=== PATIENT | female | born 1995 | race Caucasian/White ===

== ENCOUNTER 2019-04-17 12:59 | Outpatient (CLI) | payer BC, SELFPAY ==
[2019-04-17 14:19] LABS: Hematocrit 41.4 % (37.0-47.0); Hemoglobin 14.2 g/dL (12.0-15.0); Mean Corpuscular HGB Conc 34.3 g/dl (32-36); Mean Corpuscular Volume 90.4 fl (80-100); Mean Platelet Volume 10.1 fl (7.4-10.4); Platelet Count Result 292 k/mm3 (150-375); Red Blood Count 4.58 M/mm3 (4.2-5.4); Red Cell Distribution Width 11.7 % (11.5-14.5)
[2019-04-17 14:36] LABS: Alanine Aminotransferase 22 U/L (4-35); Albumin Level 4.6 g/dL (3.5-5.1); Alkaline Phosphatase 73 U/L (38-126); Aspartate Amino Transferase 23 U/L (14-36); Bilirubin,Total 0.4 mg/dL (0.2-1.3); Blood Urea Nitrogen 12 mg/dL (7-17); Calcium 9.3 mg/dL (8.4-10.2); Carbon Dioxide 24 mmol/L (22-30); Chloride 102 mmol/L (98-107); Cholesterol 187 mg/dL (0-200); Estimated Glomerular Filt Rate > 60; Glucose 85 mg/dL (65-105); HDL Direct 43 mg/dL; Potassium 3.9 mmol/L (3.4-5.0); Sodium 138 mmol/L (137-145); Triglycerides 129 mg/dL (<150)
[2019-04-17 14:47] LABS: LDL Cholesterol Direct 113 mg/dL
[2019-04-17 17:23] LABS: Hemoglobin A1C 5.3 % (<5.7)
[2019-04-20 12:58] LABS: FSH 4.1 mIU/mL (***); LH 2.5 mIU/mL (***); Progesterone 0.8 ng/mL (***); Prolactin 6.7 ng/mL (***)
[2019-04-20 16:12] LABS: Testosterone Total 20 ng/dL (2-45)
[2019-04-21 03:45] LABS: Sex Hormone Binding Globulin 23 nmol/L (17-124)
[2019-04-21 09:57] LABS: DHEA-Sulfate 168 mcg/dL (18-391)
[2019-04-26 18:32] LABS: Estradiol, Ultrasensitive 31 pg/mL
== END 2019-04-17 13:00 | disposition home or self-care (01) ==
PROVIDERS: Obstetrics & Gynecology Gynecology; Visit Provider Nurse Practitioner Obstetrics & Gynecology
DX: N92.6 Irregular menstruation, unspecified (principal)
CPT/HCPCS: 36415; 80053; 80061; 82627; 82670; 83001; 83002; 83036; 83498; 84144; 84146; 84270; 84403; 84443; 85027

== ENCOUNTER 2019-11-17 20:51 | Emergency (ER) | payer BC, SELFPAY ==
--- NOTE | ~2019-11-17 | US_ITS ---
EXAMINATION: US OB <=14 wk fetus w TV DATE: 11/18/2019 02:18 INDICATION: Low abdominal pain. TECHNIQUE: Real-time transabdominal and transvaginal pelvic ultrasound was performed. COMPARISON: None. FINDINGS: TRANSABDOMINAL ULTRASOUND: The uterus measures 9.1 x 4.8 x 6.1 cm. TRANSVAGINAL ULTRASOUND: There is an intrauterine gestational sac. A yolk sac is identified. The fet al crown rump length measures 1.3 cm, which correlates with an estimated gestational age of 7 weeks a nd 4 day(s) (+/-) 5 day(s). heart motion is identified measuring 149 beats per minute (bpm) by M-mode Doppler. There is a small subchorionic hematoma measuring 2.6 x 1.2 x 2.5 cm. The right ovary measures 3.9 x 1.9 x 2.2 cm. The left ovary measures 2.9 x 2.4 x 2.5 cm. There is no free fluid in th e pelvis. IMPRESSION: 1. Single living intrauterine gestation with estimated date of delivery of 07/02/2020. 2. Small subchorionic hematoma. Reviewed, dictated and finalized at location A. IMPRESSION: 1. Single living intrauterine gestation with estimated date of delivery of 06/06. 2. Small subchorionic hematoma.
--- NOTE | 2019-11-17 23:17 | ED.BACK ---
HPI - Back Pain/Injury General Chief Complaint: Back Pain/Injury Stated Complaint: back pain/might be Time Seen by Provider: 11/17/19 22:33 Source: patient Mode of arrival: ambulatory Limitations: no limitations History of Present Illness HPI Narrative: This patient is a 24 year old female who presents for evaluation of left lower back pain since yesterday. She states this pain is intermittent and it may radiated to left lower abdomen. She denies nausea, vomiting, fever or chills. She also denies vaginal bleeding. She has not taken anything pain as she reports she is . She has a positive test 1 month ago. Her last known menstrual cycle was 10/03/19. She reports her pain is 4/10. Related Data Home Medications Medication Instructions Recorded Confirmed hydroxyzine HCl 10 mg tablet 10 mg PO TID PRN 07/08/19 Allergies Allergy/AdvReac Type Severity Reaction Status Date / Time No Known Allergies Allergy Verified 11/17/19 20:52 Review of Systems Review of Systems: All systems reviewed & are unremarkable except as noted in HPI and below Constitutional: Constitutional: Denies chills and Denies fever(s) Gastrointestinal: Gastrointestinal: Reports abdominal pain, Denies nausea and Denies vomiting Genitourinary: Genitourinary: Denies hematuria and Reports dysuria Musculoskeletal: Musculoskeletal: Reports back pain [facility] Past Medical History Medical History (Updated 11/18/19 @ 03:13 by Herlinda Kern MD) Hirsutism PCOS (polycystic ovarian syndrome) Family History Family History Mother Asthma Father Family history of arthritis Social History Social History (Updated 10/28/19 @ 14:09 by Chinyere Stuart) Social History: Single Smoking packs per day: 0.5 Smoking cigarettes per day: 10.0 Years smoked: 12 Smoking pack-years: 6.00 Smoking status: Current every day smoker Tobacco type: cigarettes and e-cigarettes/vaping Second hand tobacco smoke exposure: Yes Alcohol intake: current Substance use: never Substance use type: does not use Gender identity (if verbalized by the patient): Female Exam Const: General: no acute distress and alert Nutritional Appearance: obese Orientation/consciousness: patient oriented x3 HENMT: Face and sinus: face symmetric Throat: posterior oropharynx normal, tonsils normal and uvula midline Eyes: Pupils: Equal, round and reactive pupils present EOM: EOMs intact bilaterally Chest: Chest palpation & inspection: normal inspection of the chest Resp: Effort & Inspection: normal respiratory effort, no retractions and no use of accessory muscles Auscultation: clear to auscultation bilaterally Cardio: Rate: regular rate Rhythm: regular rhythm GI: GI Palp: Yes Soft to palpation, No Tenderness to palpation present (GI), No Guarding due to palpation present (GI) and No Rigid due to palpation Course Reevaluation(s) Reevaluation #1: I Discussed with patient that ultrasound shows IUP with heart tones. On review of records her Blood type is O positive so no rhogam needed. Date: 11/18/19 Time: 03:07 Vital Signs Vital signs: Vital Signs Temperature 98 F 11/18/19 03:17 Pulse Rate 92 11/18/19 03:17 Respiratory Rate 16 11/18/19 03:17 Blood Pressure 127/83 11/18/19 03:17 Pulse Oximetry 98 11/18/19 03:17 Temperature 98 F 11/18/19 03:17 Pulse Rate 92 11/18/19 03:17 Respiratory Rate 16 11/18/19 03:17 Blood Pressure 127/83 11/18/19 03:17 Pulse Oximetry 98 11/18/19 03:17 MDM - Back Pain/Injury Lab Data Attestation: I reviewed the patient's lab results. Result diagrams: 11/18/19 00:12 11/18/19 00:12 Labs: Lab Results 11/17/19 11/18/19 11/18/19 Range/Units 22:56 00:12 00:12 WBC 13.3 H (4.5-10.0) K/mm3 RBC 4.24 (4.2-5.4) M/mm3 Hgb 13.7 (12.0-15.0) g/dL Hct 39.3 (37.0
[2019-11-17 23:25] LABS: Add Urine Microscopic? NO; Appearance Urine Clear (Clear); Bilirubin Urine Negative (Negative); Blood Urine Negative (Negative); Color Urine Yellow (Yellow); Glucose Urine UA Negative (Negative); Ketones Urine Negative (Negative); Leukocyte Esterase Ur Negative LEU/UL (Negative); Nitrate Urine Negative (Negative); Protein Urine Negative (Negative); Specific Grav Ur 1.012 (1.001-1.035); Urobilinogen Urine Negative mg/dL (<2.0)
[2019-11-18 00:20] LABS: Basophils Absolute Auto 0.1 K/mm3 (0.0-0.1); Basophils Percent Auto 1.1 % (0.2-1.2); Eosinophils Absolute Auto 0.6 K/mm3 (0-0.3); Eosinophils Percent Auto 4.4 % (0-4.4); Hematocrit 39.3 % (37.0-47.0); Hemoglobin 13.7 g/dL (12.0-15.0); Immature Granulocyte Absolute 0.13 K/mm3 (0.00-0.031); Lymphocytes Absolute Auto 3.65 K/mm3 (0.9-3.2); Lymphocytes Percent Auto 27.5 % (18.3-44.2); Mean Corpuscular HGB Conc 34.9 g/dl (32-36); Mean Corpuscular Hemoglobin 32.3 pg (26-34); Mean Corpuscular Volume 92.7 fl (80-100); Mean Platelet Volume 9.8 fl (7.4-10.4); Monocytes Absolute Auto 0.7 K/mm3 (0.1-0.6); Monocytes Percent Auto 5.3 % (2.6-8.5); Neutrophils Absolute Auto 8.1 K/mm3 (1.3-6.7); Neutrophils Percent Auto 60.7 % (45.5-73.1); Platelet Count Result 303 k/mm3 (150-375); Red Blood Count 4.24 M/mm3 (4.2-5.4); Red Cell Distribution Width 12.8 % (11.5-14.5); White Blood Count 13.3 K/mm3 (4.5-10.0)
[2019-11-18 00:32] LABS: Alanine Aminotransferase 27 U/L (4-35); Albumin Level 3.8 g/dL (3.5-5.1); Alkaline Phosphatase 64 U/L (38-126); Anion Gap 7 mmol/L (8-16); Aspartate Amino Transferase 20 U/L (14-36); Bilirubin,Total 0.2 mg/dL (0.2-1.3); Blood Urea Nitrogen 7 mg/dL (7-17); Calcium 9.2 mg/dL (8.4-10.2); Carbon Dioxide 24 mmol/L (22-30); Chloride 105 mmol/L (98-107); Estimated CRCL calculation 157 ml/min; Estimated Glomerular Filt Rate > 60; Glucose 96 mg/dL (65-105); Potassium 3.9 mmol/L (3.4-5.0); Sodium 136 mmol/L (137-145)
--- NOTE | 2019-11-18 01:52 | PC.NURSE ---
pt at ultrasound at this time
[2019-11-18 03:17] VITALS: BP 127/83; PULSE 92; RESP 16; TEMP 36.6; O2SAT 98
== END 2019-11-18 03:18 | disposition home or self-care (01) ==
PROVIDERS: Emergency Provider General Practice; PCP Family Medicine
DX: O46.8X1 Other antepartum hemorrhage, first trimester (principal); O99.281 Endocrine, nutritional and metabolic diseases complicating pregnancy, first trimester; E28.2 Polycystic ovarian syndrome; O99.331 Smoking (tobacco) complicating pregnancy, first trimester; F17.210 Nicotine dependence, cigarettes, uncomplicated; Z3A.01 Less than 8 weeks gestation of pregnancy
CPT/HCPCS: 36415; 76801; 76817; 80053; 81003; 81025; 84702; 85025; 99284

== ENCOUNTER 2020-06-24 13:59 | Outpatient (CLI) | payer BC, MEDICAID, SELFPAY ==
[2020-06-24 15:07] LABS: Hematocrit 32.2 % (37.0-47.0); Hemoglobin 11.2 g/dL (12.0-15.0); Mean Corpuscular HGB Conc 34.8 g/dl (32-36); Mean Corpuscular Hemoglobin 31.2 pg (26-34); Mean Corpuscular Volume 89.7 fl (80-100); Mean Platelet Volume 10.4 fl (7.4-10.4); Platelet Count Result 273 k/mm3 (150-375); Red Blood Count 3.59 M/mm3 (4.2-5.4); Red Cell Distribution Width 13.1 % (11.5-14.5); White Blood Count 14.8 K/mm3 (4.5-10.0)
[2020-06-25 08:30] LABS: Rapid Plasma Reagin Non-Reactive (NonReactive)
== END 2020-06-24 14:00 | disposition home or self-care (01) ==
PROVIDERS: PCP Family Medicine; Visit Provider Obstetrics & Gynecology
DX: Z01.812 Encounter for preprocedural laboratory examination (principal); O34.219 Maternal care for unspecified type scar from previous cesarean delivery; Z3A.39 39 weeks gestation of pregnancy
CPT/HCPCS: 36415; 85027; 86592; 86850; 86900; 86901

== ENCOUNTER 2020-06-25 05:20 | Inpatient (IN) | payer BC, MEDICAID, SELFPAY ==
[2020-06-25] VITALS (56 sets, daily range): BP systolic 78–142; BP diastolic 45–104; PULSE 69–249; RESP 15–21; TEMP 36.2–36.6; O2SAT 97–100; BMI 43.7
[2020-06-25] MEDS: LACTATED RINGERS 1,000 ML 125 ML IV CONT (06:46)
--- NOTE | 2020-06-25 07:14 | WPDANESEPPF ---
Anes - Initial Pre Proc Eval Procedure: Operation Date: 06/25/20 07:30 Proposed Procedures p Repeat Section - Cortney Thibodeaux MD Date/Time: 06/25/20 07:14 Surgeon: Cortney Thibodeaux MD Pre Op Diagnosis: C/S Patient Data Age: 25 Gender: F Height: 1.68 m Weight: 122.73 kg Last Vital Signs Pulse 91 06/25/20 06:33 BP 142/86 H 06/25/20 06:33 Allergies Allergy/AdvReac Type Severity Reaction Status Date / Time No Known Allergies Allergy Verified 11/17/19 20:52 Home Medications Medication Instructions Recorded Confirmed Type No Home Medications 06/25/20 06/25/20 History Patient hx anesthesia problems: none Family hx anesthesia problems: none PMFSH Past Medical History Medical History (Updated 11/18/19 @ 03:13 by Herlinda Kern MD) Hirsutism PCOS (polycystic ovarian syndrome) Family History Family History Mother Asthma Father Family history of arthritis Social History Social History (Updated 10/28/19 @ 14:09 by Chinyere Stuart) Social History: Single Smoking packs per day: 0.5 Smoking cigarettes per day: 10.0 Years smoked: 12 Smoking pack-years: 6.00 Smoking status: Current every day smoker Tobacco type: cigarettes and e-cigarettes/vaping Second hand tobacco smoke exposure: Yes Alcohol intake: current Substance use: current Substance use type: does not use Gender identity (if verbalized by the patient): Female Spiritual care concerns: No Anes - Eval Final PreProcedure Day of Procedure 06/25/20 07:14 Patient weight: morbidly obese Heart: regular rate and rhythm Lungs: clear to auscultation and normal air movement Airway: Mallampati scale class II Neurological: alert and oriented Last oral intake: >/= 8 hours ASA classification: III Emergent: no Anesthetic plan: proceed Anesthesia type and monitoring: regional spinal and standard monitoring Informed Consent: The patient's anesthetic plan and its attendant risks and benefits were discussed with the patient/family/POA. Questions were solicited and answers provided to the satisfaction of the patient/family/POA.
--- NOTE | 2020-06-25 07:30 | LDADM ---
This patient, Julianna Tate, was admitted to Labor/Delivery/Recovery 119 on 06/25/20 at 05:20. Plans for section pain management and were discussed with patient. Patient/family oriented to hospital policies and general routines including ID bracelet, bed and alarms, visiting hours, pain management, procedures, bathroom and other care routines, personal items, smoking policy, room service/diet and guest tray routines, infant security routines, and visiting hours. Patient/Family are encouraged to report perceived risks to care and to ask questions if they do not understand what they are told or what they should do. See OBIX for further documentation.
--- NOTE | 2020-06-25 07:33 | PM.IMHP ---
H&P: HPI History of Present Illness Date/Time: 06/25/20 07:33 Chief Complaint: repeat CS Narrative: Pt is a 25yo at 39weeks for Repeat CS. Pregnacy complicated by obesity. Review of Systems Review of Systems: All systems reviewed & are unremarkable except as noted in HPI and below PMFSH Past Medical History Medical History (Updated 11/18/19 @ 03:13 by Herlinda Kern MD) Hirsutism PCOS (polycystic ovarian syndrome) Family History Family History Mother Asthma Father Family history of arthritis Social History Social History (Updated 10/28/19 @ 14:09 by Chinyere Stuart) Social History: Single Smoking packs per day: 0.5 Smoking cigarettes per day: 10.0 Years smoked: 12 Smoking pack-years: 6.00 Smoking status: Current every day smoker Tobacco type: cigarettes and e-cigarettes/vaping Second hand tobacco smoke exposure: Yes Alcohol intake: current Substance use: current Substance use type: does not use Gender identity (if verbalized by the patient): Female Spiritual care concerns: No Meds Home Medications and Allergies Home Medications Medication Instructions Recorded Confirmed Type No Home Medications 06/25/20 06/25/20 History Allergies Allergy/AdvReac Type Severity Reaction Status Date / Time No Known Allergies Allergy Verified 11/17/19 20:52 Vital Signs Vital Signs - 24 hr 06/25/20 06:33 Pulse Rate 91 Blood Pressure 142/86 H Exam Const: General: no acute distress Resp: Effort & Inspection: normal respiratory effort Auscultation: clear to auscultation bilaterally Cardio: Rate: regular rate Rhythm: regular rhythm GI: GI Palp: Yes Soft to palpation Extrem: General: normal to inspection Assessment and Plan Additional Plan R CS Pt consented, discussed RBA, questions answered. Will proceed.
--- NOTE | 2020-06-25 07:36 | WPDHPUPDATE1 ---
History and Physical Update Update Date/Time: 06/25/20 07:36 History and Physical has been reviewed, including an updated exam of the patient. There are NO changes in the patient's condition. Risks, benefits, and alternatives have been discussed and questions answered. Patient agrees to proceed with procedure.
[2020-06-25 08:25] LABS: Amphetamine Screen Urine Negative (Negative); Barbiturate Screen Urine Negative (Negative); Benzodiazepines Screen Urine Negative (Negative); Cannabinoid Screen Urine Negative (Negative); Cocaine Screen Urine Negative (Negative); Methadone Screen Urine Negative (Negative); Opiate Screen Urine Negative (Negative); Phencyclidine Screen Urine Negative (Negative)
--- NOTE | 2020-06-25 08:41 | P.PCNOB_ITS ---
OB - Delivery Note Procedure Delivery date: 06/25/20 Procedure: Procedures Operation Date: 06/25/20 07:30 <No data on this case meets the specified criteria> section Intrapartal events: None Route of delivery: Specimen: Yes (placenta) Quantitative Blood Loss (ml): 300 Anesthesia type: Spinal Disposition: floor Complications: none Narrative: The patient was taken to the OR and received spinal anesthesia. She was placed in dorsal supine position with left lateral tilt. SCDs and pastor were placed. She was prepped and draped in the normal sterile fashion. A Pfannensteil skin incision was made and carried through to the underlying layer of fascia. The fascia was incised in the midline and then extended laterally using Tang scissors. The muscles were in the midline and the peritoneum was entered bluntly. The peritoneal incision was extended inferiorly and superiorly with care to avoid the bladder. The bladder blade was then inserted, the vesicouterine peritoneum was grasped, incised with Metzenbaum scissors, and a bladder flap created. The bladder blade was reinserted. A low transverse uterine incision was made with a scalpel and extended bluntly. AROM was performed and fluid was noted to be clear. The head was delivered, followed by the remainder of the baby. The baby's oropharynx was suctioned. After 30 seconds, the cord was clamped and cut and the infant was handed off. Cord blood was obtained and the placenta was then removed manually. The uterus was exteriorized. A moist lap sponge was used to curette the endometrium. The uterine incision was then closed with one layer of 0-Vicryl in a running, locking fashion. Good hemostasis was noted. The posterior cul de sac was irrigated with normal saline and cleared of all clot and debris. The u terus was returned to the abdomen. Both lateral gutters were then irrigated. The rectus muscles were inspected and found to be hemostatic. The fascia was reapproximated using 0-Vicryl in running fashion. The subcutaneous tissue was irrigated with normal saline and made hemostatic with Bovie electrocautery. The subcutaneous tissue was reapproximated with a layer of running 2-0 plain gut. The skin was then closed with 4-0 Vicryl in a subcuticular fashion. Steri strips and a bandage were applied. The uterus was evacuated. The patient tolerated the procedure very well. All counts were correct. She was taken to the recovery room in good condition. [place] Baby Date of : 06/25/20 Time of : 08:06 Weeks of gestation at delivery: 39 Infant gender: Male Weight (pounds): 7 Weight (ounces): 6 presentation: vertex Placenta delivery description: Manual Removal cord vessel description: 3 Vessels and Delayed Cord Clamping score one minute: 8 score five minutes: 9
[2020-06-25] MEDS: OXYTOCIN 30 UNITS/NS 500 ML 30 UNITS/500 ML BAG 125 UNITS IV CONT (09:50)
--- NOTE | 2020-06-25 11:08 | OBPPTRN ---
Patient transferred to post room # 284 via stretcher. Support person present. Oriented to unit, room, information board, rooming in, admission packet and security measures. Patient verbalizes understanding.
[2020-06-25] MEDS: DEXTROSE 5%/0.45% SOD CHL 1,000 ML 125 ML IV CONT (14:00)
[2020-06-25] MEDS: HYDROcodone/acetaminophen (*CRX) 5-325 MG TABLET 1 TAB PO (16:28)
[2020-06-25] MEDS: IBUPROFEN 600 MG TABLET PO (16:28)
[2020-06-25] MEDS: DOCUSATE SODIUM 100 MG CAPSULE PO (16:29)
[2020-06-26 00:45] VITALS: BP 117/58; PULSE 93; RESP 16; TEMP 36.2; O2SAT 100
[2020-06-26 04:40] VITALS: BP 119/66; PULSE 88; RESP 18; TEMP 36.7; O2SAT 100
[2020-06-26] MEDS: IBUPROFEN 600 MG TABLET PO ×4 (04:43→23:43)
[2020-06-26] MEDS: HYDROcodone/acetaminophen (*CRX) 5-325 MG TABLET 1 TAB PO ×3 (04:44→17:15)
[2020-06-26 05:23] LABS: Basophils Percent Auto 0.3 % (0.2-1.2); Eosinophils Absolute Auto 0.2 K/mm3 (0-0.3); Eosinophils Percent Auto 1.5 % (0-4.4); Hematocrit 27.7 % (37.0-47.0); Hemoglobin 9.7 g/dL (12.0-15.0); Immature Granulocyte Absolute 0.16 K/mm3 (0.00-0.031); Immature Granulocyte Percent A 1.2 % (0-0.5); Lymphocytes Absolute Auto 1.86 K/mm3 (0.9-3.2); Lymphocytes Percent Auto 13.4 % (18.3-44.2); Mean Corpuscular Hemoglobin 31.3 pg (26-34); Mean Corpuscular Volume 89.4 fl (80-100); Mean Platelet Volume 10.1 fl (7.4-10.4); Monocytes Absolute Auto 0.6 K/mm3 (0.1-0.6); Monocytes Percent Auto 4.6 % (2.6-8.5); Neutrophils Absolute Auto 10.9 K/mm3 (1.3-6.7); Platelet Count Result 204 k/mm3 (150-375); Red Cell Distribution Width 12.9 % (11.5-14.5); White Blood Count 13.9 K/mm3 (4.5-10.0)
--- NOTE | 2020-06-26 07:41 | WPDANLDNPN2 ---
Anes-Prog Note L&D-Neuraxial Date/Time: 06/26/20 07:41 Neuraxial medications: intrathecal PF morphine Opiod-related complaints: none Patient feedback: Patient satisfied with post-operative pain management.
--- NOTE | 2020-06-26 07:41 | WPDANLDPN2 ---
Anes-Prog Note L&D Date/Time: 06/26/20 07:41 Comfortable throughout: section Neuraxial method: spinal Epidural/Spinal procedure site: clean & non-tender Neuro status: Neuro function grossly intact. Cardiovascular status: normal Respiratory status: normal Airway patency: baseline Mental status: baseline Post-Op hydration status: normal Vital Signs: Last Vital Signs Temp 36.7 C 06/26/20 04:40 Pulse 88 06/26/20 04:40 Resp 18 06/26/20 04:40 BP 119/66 06/26/20 04:40 Pulse Ox 100 06/26/20 04:40 Pain score (VAS): 0 I/O: Intake & Output 06/25/20 06/25/20 06/26/20 15:59 23:59 07:59 Intake Total 3050 750 Output Total 045 233 1121 Balance -450 2400 -450 Post-procedural complaints: none Patient feedback: Patient satisfied with anesthetic care.
--- NOTE | 2020-06-26 08:17 | P.PNOB_ITS ---
OB - PN: Subj Subjective Date/time seen: 06/26/20 08:17 Patient comments: no complaints baby status: doing well Narrative: POD 1 from primary CS. Doing well. Normal lochia. Eating, ambulating, pastor out. OB - PN: Obj Data Labs CBC & Chem 7: 06/26/20 05:14 Labs: Laboratory Results - last 24 hr 06/25/20 06/26/20 07:44 05:14 WBC 13.9 H RBC 3.10 L Hgb 9.7 L Hct 27.7 L MCV 89.4 MCH 31.3 MCHC 35.0 RDW 12.9 Plt Count 204 MPV 10.1 Immature Gran % (Auto) 1.2 H Neut % (Auto) 79.0 H Lymph % (Auto) 13.4 L [place] % (Auto) 4.6 Eos % (Auto) 1.5 Baso % (Auto) 0.3 Lymph # (Auto) 1.86 [place] # (Auto) 0.6 Eos # (Auto) 0.2 Baso # (Auto) 0.0 Abs Immat Gran (auto) 0.16 H Absolute Neuts (auto) 10.9 H Absolute Nucleated RBC 0.0 Nucleated RBC % 0.0 Urine Opiates Screen Negative Urine Methadone Screen Negative Ur Barbiturates Screen Negative Ur Phencyclidine Scrn Negative Ur Amphetamine Screen Negative U Benzodiazepines Scrn Negative Urine Cocaine Screen Negative U Cannabinoids Screen Negative OB - PN A/P Plan day: 1 Plan: routine care Time Spent With Patient Time: Total time spent is greater than 50% in coordination of care (as documented) at patient's floor/unit and/or counseling patient: Exam Narrative: Exam Narrative: NAD abdomen soft, appropriately tender, incision bandaged Extremities nontender with 1+ edema
[2020-06-26] MEDS: SIMETHICONE 80 MG TAB.CHEW PO ×2 (11:18→17:14)
[2020-06-26] MEDS: DOCUSATE SODIUM 100 MG CAPSULE PO ×2 (11:19→17:16)
[2020-06-26] MEDS: POLYSACCHARIDE IRON COMPLEX 150 MG CAPSULE PO ×2 (11:19→17:16)
[2020-06-26] MEDS: MULTIVIT/MIN/PREN/FOL AC/IRON TABLET 1 TAB PO (11:19)
[2020-06-26 11:20] VITALS: BP 124/66; PULSE 104; PULSE 88; RESP 18; RESP 20; TEMP 36.4; O2SAT 100; O2SAT 99
[2020-06-26 19:15] VITALS: BP 119/70; PULSE 99; RESP 18; TEMP 36.7; O2SAT 100
[2020-06-26] MEDS: TETANUS,DIPHTHERIA,AC PERTUSSIS ADULT (0.5 ML) BOOSTRIX IM (19:16)
--- NOTE | 2020-06-26 19:31 | PC.NURSE ---
Patient viewed the discharge video Mother & Baby Care, The First Two Weeks online. Patient was given the opportunity and encouraged to ask questions. Patient verbalized understanding of information shared and has been given the mother/baby guide for home reference.
[2020-06-26] MEDS: HYDROcodone/acetaminophen (*CRX) 10-325 MG TABLET 1 TAB PO ×2 (21:06→23:43)
[2020-06-27] MEDS: HYDROcodone/acetaminophen (*CRX) 10-325 MG TABLET 1 TAB PO (05:42)
[2020-06-27] MEDS: IBUPROFEN 600 MG TABLET PO (05:43)
[2020-06-27 08:00] VITALS: PULSE 99; RESP 18; O2SAT 100
--- NOTE | 2020-06-27 09:54 | PM.OBPNVD ---
OB - PN: Subj Subjective Date/time seen: 06/27/20 09:54 Interval history: Doing well. Would like DC home today but uncle called and stated she is homeless. She can go with her grandma for a couple days but not residential. Patient comments: pain well controlled [place] baby status: doing well feeding status: exclusively bottle feeding OB - PN: Obj Data Labs CBC & Chem 7: 06/26/20 05:14 OB - PN A/P Plan day: 2 Plan: routine care Comments: SW consult. Possible DC home if safe plan for where to stay. DC instructions given. Time Spent With Patient Time: Total time spent is greater than 50% in coordination of care (as documented) at patient's floor/unit and/or counseling patient: Exam Narrative: Exam Narrative: NAD abdomen soft, appropriately tender, incision CDI Extremities nontender with 1+ edema
--- NOTE | 2020-06-27 10:02 | PM.DS ---
DS: Admitting Diagnosis Admitting Diagnosis Admitting Diagnosis: term IUP, prior CS DS: Discharge Diagnosis Discharge Diagnosis (1) delivery delivered: Code(s): O82 - Encounter for delivery without indication Status: Acute DS: Summary Hospital Course Hospital Course: Pt had a repeat CS and course was uncomplicated. Status at Discharge Functional status at discharge: independent ambulation Time Spent with Patient Time attestation: Total time spent providing and/or coordinating discharge services: Exam Narrative: Exam Narrative: NAD abdomen soft, appropriately tender, incision CDI Discharge Plan Discharge Attending physician on discharge: Cortney Thibodeaux Discharging Clinician: Cortney Thibodeaux Anticipated Discharge Date/Time: 06/27/20 17:00 Patient Disposition: Home, Self-Care Activity: may shower, may drive after 2 weeks and pelvic rest Diet: as tolerated Patient Instructions: Antibiotic Form Stand Alone Forms: General Discharge Information Follow-up/Referrals: Cortney Thibodeaux MD [Physician] - (1 week) Discharge Medications: New hydrocodone-acetaminophen 5-325 mg Tablet 1 tablet PO Q4-6H PRN (Reason: Moderate Pain (4-6)) Qty: 30 RF: 0 ibuprofen 600 mg Tablet 600 mg PO Q6H PRN (Reason: Cramping) Qty: 60 RF: 1 docusate sodium 100 mg Capsule 100 mg PO BID PRN (Reason: constipation) Qty: 60 RF: 1 No Action No Home Medications RF: 0 Date of admission: 06/25/20 05:20 Primary Care Provider: Mita Washington Admitting Provider: Cortney Thibodeaux Attending physician on admission: Cortney Thibodeaux Condition: Stable
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
[2020-06-30 11:20] VITALS: BP 135/93; PULSE 90; RESP 20; TEMP 37.1; O2SAT 99
== END 2020-06-27 13:25 | disposition home or self-care (01) | DRG 788 ==
LOC: ANHLDR 05:33 → ANHOB2 11:15
PROVIDERS: Admitting Provider Obstetrics & Gynecology; PCP Family Medicine; Visit Provider Obstetrics & Gynecology
PROC: 10D00Z1 Extraction of Products of Conception, Low, Open Approach (ICD-10-PCS; CPT 59514; principal; 2020-06-25 07:30)
DX: O34.211 Maternal care for low transverse scar from previous cesarean delivery (principal); Z37.0 Single live birth; Z3A.39 39 weeks gestation of pregnancy; O99.284 Endocrine, nutritional and metabolic diseases complicating childbirth; E28.2 Polycystic ovarian syndrome; O99.72 Diseases of the skin and subcutaneous tissue complicating childbirth; L68.0 Hirsutism; O99.214 Obesity complicating childbirth; E66.01 Morbid (severe) obesity due to excess calories; O99.344 Other mental disorders complicating childbirth; F41.1 Generalized anxiety disorder; O99.334 Smoking (tobacco) complicating childbirth; F17.210 Nicotine dependence, cigarettes, uncomplicated
CPT/HCPCS: 36415; 80307; 85025; 90715; A9270; J0131; J2274; J2370; J2590; J7120

== ENCOUNTER 2020-06-30 12:18 | Outpatient (CLI) | payer BC, MEDICAID, SELFPAY ==
[2020-06-30 12:44] VITALS: BP 136/73; PULSE 87
[2020-06-30 12:46] VITALS: BP 139/74; PULSE 77
[2020-06-30 12:49] LABS: Basophils Absolute Auto 0.1 K/mm3 (0.0-0.1); Basophils Percent Auto 0.6 % (0.2-1.2); Eosinophils Absolute Auto 0.3 K/mm3 (0-0.3); Eosinophils Percent Auto 2.9 % (0-4.4); Hematocrit 31.2 % (37.0-47.0); Hemoglobin 10.5 g/dL (12.0-15.0); Immature Granulocyte Percent A 2.6 % (0-0.5); Lymphocytes Absolute Auto 2.19 K/mm3 (0.9-3.2); Lymphocytes Percent Auto 18.9 % (18.3-44.2); Mean Corpuscular HGB Conc 33.7 g/dl (32-36); Mean Corpuscular Hemoglobin 31.4 pg (26-34); Mean Corpuscular Volume 93.4 fl (80-100); Mean Platelet Volume 9.5 fl (7.4-10.4); Monocytes Absolute Auto 0.6 K/mm3 (0.1-0.6); Neutrophils Absolute Auto 8.1 K/mm3 (1.3-6.7); Platelet Count Result 284 k/mm3 (150-375); Red Blood Count 3.34 M/mm3 (4.2-5.4); White Blood Count 11.6 K/mm3 (4.5-10.0)
[2020-06-30 12:59] LABS: Alanine Aminotransferase 14 U/L (4-35); Albumin Level 3.2 g/dL (3.5-5.1); Alkaline Phosphatase 116 U/L (38-126); Anion Gap 4 mmol/L (8-16); Aspartate Amino Transferase 20 U/L (14-36); Bilirubin,Total 0.3 mg/dL (0.2-1.3); Blood Urea Nitrogen 9 mg/dL (7-17); Calcium 8.8 mg/dL (8.4-10.2); Carbon Dioxide 29 mmol/L (22-30); Chloride 106 mmol/L (98-107); Estimated Glomerular Filt Rate > 60; Glucose 77 mg/dL (65-105); Potassium 3.3 mmol/L (3.4-5.0); Sodium 139 mmol/L (137-145)
[2020-06-30 13:01] VITALS: BP 143/79; PULSE 77
[2020-06-30 13:15] LABS: Uric Acid 4.9 mg/dL (2.5-7.5)
--- NOTE | 2020-06-30 13:15 | PC.NURSE ---
allyson WANGM reported BP and PIH lab result. discharge order received
[2020-06-30 13:17] VITALS: BP 153/83; PULSE 78
== END 2020-06-30 13:20 | disposition home or self-care (01) ==
LOC: ANHOBOP 12:26 → ANHOBPP 12:26
PROVIDERS: PCP Family Medicine; Visit Provider Advanced Practice Midwife
DX: O13.5 Gestational [pregnancy-induced] hypertension without significant proteinuria, complicating the puerperium (principal)
CPT/HCPCS: 36415; 80053; 84550; 85025; 99199

== ENCOUNTER 2020-07-02 14:44 | Outpatient (CLI) | payer BC, MEDICAID, SELFPAY ==
[2020-07-02 15:11] VITALS: BP 151/90; PULSE 92
[2020-07-02 15:32] VITALS: BP 158/94; PULSE 100
[2020-07-02 15:32] LABS: Basophils Absolute Auto 0.1 K/mm3 (0.0-0.1); Basophils Percent Auto 0.9 % (0.2-1.2); Eosinophils Absolute Auto 0.4 K/mm3 (0-0.3); Eosinophils Percent Auto 3.3 % (0-4.4); Hemoglobin 10.8 g/dL (12.0-15.0); Immature Granulocyte Absolute 0.24 K/mm3 (0.00-0.031); Immature Granulocyte Percent A 2.3 % (0-0.5); Lymphocytes Absolute Auto 2.84 K/mm3 (0.9-3.2); Lymphocytes Percent Auto 26.8 % (18.3-44.2); Mean Corpuscular HGB Conc 33.8 g/dl (32-36); Mean Corpuscular Hemoglobin 31.5 pg (26-34); Mean Corpuscular Volume 93.3 fl (80-100); Mean Platelet Volume 9.1 fl (7.4-10.4); Monocytes Absolute Auto 0.6 K/mm3 (0.1-0.6); Monocytes Percent Auto 5.7 % (2.6-8.5); Neutrophils Absolute Auto 6.5 K/mm3 (1.3-6.7); Platelet Count Result 317 k/mm3 (150-375); Red Blood Count 3.43 M/mm3 (4.2-5.4); Red Cell Distribution Width 12.7 % (11.5-14.5); White Blood Count 10.6 K/mm3 (4.5-10.0)
[2020-07-02 15:43] LABS: Alanine Aminotransferase 12 U/L (4-35); Albumin Level 3.3 g/dL (3.5-5.1); Alkaline Phosphatase 93 U/L (38-126); Anion Gap 5 mmol/L (8-16); Aspartate Amino Transferase 20 U/L (14-36); Bilirubin,Total 0.2 mg/dL (0.2-1.3); Blood Urea Nitrogen 10 mg/dL (7-17); Calcium 8.9 mg/dL (8.4-10.2); Carbon Dioxide 28 mmol/L (22-30); Chloride 107 mmol/L (98-107); Estimated Glomerular Filt Rate > 60; Glucose 80 mg/dL (65-105); Potassium 3.2 mmol/L (3.4-5.0); Sodium 140 mmol/L (137-145); Uric Acid 5.2 mg/dL (2.5-7.5)
[2020-07-02 15:46] VITALS: BP 147/83; PULSE 71
[2020-07-02 16:01] VITALS: BP 143/93; PULSE 78
== END 2020-07-02 16:15 | disposition home or self-care (01) ==
LOC: ANHOBOP 14:57 → ANHOBPP 14:57
PROVIDERS: PCP Family Medicine; Visit Provider Obstetrics & Gynecology
DX: Z01.812 Encounter for preprocedural laboratory examination (principal); O34.218 Maternal care for other type scar from previous cesarean delivery; Z3A.39 39 weeks gestation of pregnancy
CPT/HCPCS: 36415; 80053; 84550; 85025; 99199

== ENCOUNTER 2024-09-27 08:50 | Emergency (ER) | payer MEDICAID, SELFPAY ==
--- OUTSIDE RECORDS SUMMARY | 2018-03-25 12:50 | XMS_ITS | Continuity of Care Document ---
Author Organization [facility] Address [address] [place] [address] Phone Care Team Providers Care Meteorological Technician Name Role Phone Ken MS, OTR/L, CHT, Laury Unavailable Unavailable Procedures Procedure Date OT Evaluation Low Complexity Therapeutic Exercise Neuromuscular Re-Ed Advance Directives Directive Yes / No Effective Date File Name No Information Encounters Encounter Description Practice Location Reason(s) For Visit Diagnoses Date Provider Providers Copied on Encounter [facility], [address], [id number], tel:[phone] [place] No Information 9 Ken Schaeffer. [address] [facility], [address], [facility], [place]. tel:[phone] [facility], [address], [id number], tel:[phone] [place] Paresthesia of skinPain in right handOth symptoms and signs involving the musculoskeletal systemMuscle weakness (generalized)Ot her general symptoms and signsCarpal tunnel syndrome, bilateral upper limbsLesion of ulnar nerve, bilateral upper limbs b201 9 Ken Scheaffer. [address] [facility], [address], [place], [place], [facility], . tel:[phone] Referring Provider: Chinyere Kramer, [address] [place] [address] [place], [address]. tel:[phone] Family History Family Member Type Diagnosis Age At Onset No Information Payers Payer name Insurance type Covered democrat ID Authoriza elio(s) [facility] [id number] Social History Type Description Quantity Date Captured [...]
--- OUTSIDE RECORDS SUMMARY | 2018-03-25 12:50 | XMS_ITS | Continuity of Care Document ---
Author Organization [facility] [place] Address [address] [place] [address] Phone Care Team Providers Care Double End Chucking Machine Operator Name Role Phone Ken MS, OTR/L, CHT, Laury Unavailable Unavailable Procedures Procedure Date OT Evaluation Low Complexity Therapeutic Exercise Neuromuscular Re-Ed Advance Directives Directive Yes / No Effective Date File Name No Information Encounters Encounter Description Practice Location Reason(s) For Visit Diagnoses Date Provider Providers Copied on Encounter [facility] [place], [address], [id number], tel:[phone] [place] No Information 9 Ken Schaeffer. [address] [facility], [address], [facility], [place]. tel:[phone] [facility] [place], [address], [id number], tel:[phone] [place] Paresthesia of skinPain in right handOth symptoms and signs involving the musculoskeletal systemMuscle weakness (generalized)Ot her general symptoms and signsCarpal tunnel syndrome, bilateral upper limbsLesion of ulnar nerve, bilateral upper limbs b201 9 Ken Schaeffer. [address] [facility], [address], [place], [place], [facility], . tel:[phone] Referring Provider: Chinyere Kramer, [address] [place] [address] [place], [address]. tel:[phone] Family History Family Member Type Diagnosis Age At Onset No Information Payers Payer name Insurance type Covered constitution party ID Authoriza elio(s) [facility] [id number] Social History Type Description Quantity Date Captured [...]
--- OUTSIDE RECORDS SUMMARY | 2023-09-10 05:00 | XMS_ITS ---
[facility] Organization [facility] Address [address] [place] [address] Care Team Providers Care Conveyor Belt Repairer Name Role Phone Blanca Renae Primary Care Provider Brennon Cole [phone] REASON FOR VISIT 3 Week F/U Medications Medication SIG (Take, Route, Frequency, Duration) Notes Start Date End Date Status Caplyta 42 MG 1 capsule Orally Once a day; Duration: 30 days Client to update insurance. Has secondary [facility] now. Should be able to get coverage with PA and coupon, however can we use samples please until we get this straightened out? 08/22/2023 Active Lurasidone HCl 20 MG 1 tablet in the evening with food Orally Once a day; Duration: 7 days 07/09/2023 Active Social History Sex Assigned At : Social History Observation Description Sex Assigned At Female Encounters Encounter Location Date Provider Diagnosis [address] [address] 09/10/2023 Brennon Cole Plan Of Treatment No Information Progress Notes * Julianna LOUIEDOB:1995 (29 yo F)Acc No.[id number]:09/10/2023 UNLOCKED PROGRESS NOTE Patient: Julianna CAICEDO Provider: Luis Cole DNP, PMHNP- :1995 A ge:28 Y S ex:Female Date:09/10/2023 Phone: Address:[address] [place] [id number] Pcp:Blanca Renae Subjective: * Chief Complaints: * 1 . 3 Week F/U. * Medical History: * Medications: T aking Lurasidone HCl 20 MG Tablet 1 tablet in the evening with food Orally Once a day , Taking Caplyta 42 MG Capsule 1 capsule Orally Once a day , Notes to Pharmacist: Client to update insurance. Has secondary [facility] now. Should be able to get coverage with PA and coucb, however can we use samples please until we get this straightened out? Objective: * Vitals: Assessment: Plan: * Treatment: * * Electronic signature of Maxi Cole APRN, [id number] on 09/27/2024 at 08:53 AM CDT Sign off status: Pending * Provider: Luis Cole DNP, PMHNP-BC Date: 09/10/2023 Generated for Lucius sultana/Brooks/Nimco on: 09/27/2024 08:53 AM CDT
--- OUTSIDE RECORDS SUMMARY | 2023-10-15 11:00 | XMS_ITS ---
Author Organization [facility] Address [address] [place] [address] Care Team Providers Care Junior Systems Analyst Name Role Phone Blanca Renae Primary Care Provider Brennon Cole Unavailable [phone] REASON FOR VISIT 1 Month Psych F/U & Med Refill Medications Medication SIG (Take, Route, Fr equency, Duration) Notes Start Date End Date Status Lurasidone HCl 20 MG 1 tablet in the shahab shi with food Orally Once a day; Duration: 7 days 07/09/2023 Active Caplyta 42 MG 1 capsule Orally Onc e a day; Duration: 13 days 08/22/2023 Active Social History Sex Assigned At : Social History Observation Description Sex Assigned At Female Encounters Encounter Location Date Provider Diagnosis [address] [address] 10/15/2023 Brennon Cole Plan Of Treatment No Information Progress Notes * Julianna LOUIEDOB:1995 (29 yo F)Acc No.[id number]:10/15/2023 UNLOCKED PROGRESS NOTE Patient: Julianna CAICEDO Provider: Luis Cole DNP, PMHNP-BC :1995 A ge:28 Y S ex:Female Date:10/15/2023 Phone: Address:[address] [place] [id number] Pcp:Blanca Renae Subjective: * Chief Complaints: * 1 . 1 Month Psych F/U & Med Refill. * Medical History: * Medications: T aking Lurasidone HCl 20 MG Tablet 1 tablet in the evening with food Orally Once a day , Taking Caplyta 42 MG Capsule 1 capsule Orally Once a day Objective: * Vitals: Assessment: Plan: * Treatment: * * Electronic signature of Maxi Cole APRN, [id number] on 09/27/2024 at 08:53 AM CDT Sign off status: Pending * Provider: Luis Cole DNP, PMHNP-BC Date: 0 10/15/2023 Generated for Lucius sultana/Brooks/Nimco on: 0 09/27/2024 08:53 AM CDT
--- NOTE | ~2024-09-27 | US_ITS ---
EXAMINATION:US venous doppler LE LT INDICATION:Calf pain and swelling TECHNIQUE: Multiple grayscale, color flow and Doppler images of the left lower extremity deep venous systems were obtained and reviewed. COMPARISON:No prior studies for comparison. FINDINGS: The common femoral, superficial femoral and popliteal veins demonstrate normal respiratory variation, augmentation and compressibility. Color flow is also seen within the posterior tibial, peroneal, greater saphenous and profunda veins. IMPRESSION: 1: No lower extremity deep venous thrombosis. Reviewed, dictated and finalized at location O.
--- NOTE | ~2024-09-27 | XR_ITS ---
XR ankle LT min 3V 09/27/2024 09:30 INDICATION: Left ankle pain and swelling PROCEDURE: 4 views left ankle COMPARISON: No prior studies for comparison. FINDINGS: Fracture, dislocation or subluxation is not identified. Mild lateral soft tissue swelling. No foreign bodies are identified. IMPRESSION: 1: NO ACUTE BONE OR JOINT ABNORMALITY IDENTIFIED. Reviewed, dictated and finalized at location O.
--- OUTSIDE RECORDS SUMMARY | 2024-09-27 08:53 | XMS_ITS | Clinical Summary ---
Author Organization [facility] Address [address] [place], [place] [id number] Care Team Providers Care Color Worker Name Role Phone None, Provider MD Primary Care Provider Unavaila ble Allergies No known active allergies Medications CAPLYTA 42 MG Cap Take 1 capsule by mouth daily. 08/22/2023 Active multivitamin (THERA) tablet Take 1 tablet by mouth nightly at bedtime. Active Encounters Date Type Department Care Team Description 08/04/2024 6:13 AM CDT - 08/04/2024 11:59 PM CDT Hospital Encounter [facility] [address] [facility] [place] [address] Nany Obrien, DO Discharge Disposition: Home or Self Care (Routine Discharge) 08/04/2024 Orders Only [facility] [address] [facility] [place] [address] Nany Obrien, 08/02/2024 2:42 PM CDT - 08/02/2024 11:59 PM CDT Hospital Encounter [facility] [address] [facility] [place] [address] Nany Obrien, DO Discharge Disposition: Home or Self Care (Routine Discharge) from Last 3 Months Social History Tobacco Use Types Packs/Day Years Used Date Smoking Tobacco: Never Smokeless Tobacco: Never Tobacco Cessation:Counseling Given: Not Answered Alcohol Use Standard Drinks/Week Comments Not Currently 0 (1 standard drink = 0.6 oz pur e alcohol) Comments No Sex and Gender Information Value Date Recorded Sex Assigned at Not on file Legal Sex Female 6:07 PM CDT Gender Identity Not on file Sexual Orientation Not on file Last Filed Vital Signs Vital Sign Reading Time Taken Comments Blood Pressure 117/76 10/26/2023 5:40 PM CDT Pulse 75 10/26/2023 5:40 PM CDT Temperature 36.7 C (98 F) 10/26/2023 11:37 AM CDT Respiratory Rate 18 10/26/2023 5:40 PM CDT Oxygen Saturation 97% 10/26/2023 5:40 PM CDT Inhaled Oxygen Concentration - - Weight 114.5 kg (252 lb 6.8 oz) 024 11:37 AM CDT Height 167.6 cm (5' 6) 10/26/2023 11:3 7 AM CDT Body Mass Index 40.74 10/26/2023 11:37 AM CDT Plan of Treatment Health Maintenance Due Date Last Done Comments Annual Physical 1997 Hepatitis C 2012 Hepatitis B Vaccines (1 of 3 - 19+ 3-dose series) 2013 HPV Vaccines (1 - 3-dose SCD M series) 2021 Cervical Cancer Screening Pa p Smear (Age 30 to 64) Every 3 Years 08/13/2023 08/12/2020 COVID-19 Vaccine (3 - 2023-2 5 season) 2023 12/16/2021, 01/26/2021 Cervical Cancer Screening Pa p with HPV Testing (Age 30 to 64) Every 5 Years 2024 08/12/2020 Cervical Cancer Screening wi th HPV 2024 DTaP, Tdap and Td Vaccines ( 2 - Td or Tdap) 06/26/2030 06/26/2020 Meningococcal B Vaccine Aged Out No l onger eligible based on patient's age to complete this topic Meningococcal Vaccine Aged Out No kev leonora eligible based on patient's age to complete this topic Pneumococcal Vaccine: Pediatrics (0 to 5 Years) and At-Risk Patients (6 to 49 Years) Aged Out No longer eligible b ased on patient's age to complete this topic RSV Immunizations Under 20 Months Aged Out No longer eligible b ased on patient's age to complete this topic Procedures Procedure Name Priority Date/Time Associated Diagnosis Comments CBC W/DIFF AUTOMATED Routine 08/02/2024 2:45 PM CDT Examination for, medical, general COMPREHENSIVE METABOLIC PANEL Routine 08/02/2024 2:45 PM CDT Examination for, medical, general TSH W/REFLEX Routine 08/02/2024 2:45 PM CDT Examination for, medical, general HEMOGLOBIN, GLYCOSYLATED Routine 08/02/2024 2:45 PM CDT Examination for, medical, general VITAMIN B-12 Routine 08/02/2024 2:45 PM CDT Examination for, medical, general VITAMIN D, 25 OH Routine 08/02/2024 2:45 PM CDT Examination for, medical, general LIPID PANEL Routine 08/02/2024 2:45 PM CDT Examination for, medical, general HC URNLS DIP STICK/TABLET RGNT AUTO W/O MICRO Routine 08/02/2024 2:45 PM CDT Examination for, medical, general from Last 3 Months Results * TSH W/REFLEX (08/02/2024 2:45 PM CDT) TSH 1.350 0.358 - 3.74 uIU/ML 08/04/2024 12:[address] [facility] Comment: HIGH DOSES OF BIOTIN MAY INTERFERE WITH THIS TEST RESULT. CORRELATION TO CLINICAL HISTORY AND PRESENTATION RECOMMENDED. FREE T4 NOT INDICATED 08/02/2024 2:45 PM CDT us Nany Obrien DO LABORATORY Final Resu lt [facility] [address] [place] [address], [place] [phone] * HEMOGLOBIN, GLYCOSYLATED (08/02/2024 2:45 PM CDT) HGB A1C 5.4 <5.7 % 08/04/2024 11:[address] [facility] Comment: ADA GUIDELINES 2010 5.7 TO 6.4% INCREASED RISK OF DIABETES > OR = 6.5% CONSISTENT WITH DIABETES ESTIMATED AVG GLUCOSE 108 mg/dL 08/04/2024 11:[address] [facility] 08/02/2024 2:45 PM CDT us Nany Obrien DO LABORATORY Final Resu lt [facility] [address] [place] [address], [place] [phone] * (ABNORMAL) URINALYSIS W/ REFLEX TO MICROSCOPIC (08/02/2024 2:45 PM CDT) SPECIMEN TYPE URINE, UNSPECIFIED 08/04/2024 10:[address] [facility] COLOR (U) YELLOW 08/04/2024 10:[address] [facility] TRANSPARENCY TURBID 08/04/2024 10:[address] [facility] SPECIFIC GRAVITY (U) 1.022 1.001 - 1.030 08/04/2024 10:[address] [facility] U PH 7.0 5.0 - 9.0 08/04/2024 10:[address] [facility] LEUKOCYTES (U) 500(A) NEGATIVE 08/04/2024 10:[address] [facility] NITRITES NEGATIVE NEGATIVE 08/04/2024 10:[address] [facility] PROTEIN RANDOM (U) 20 <30 MG/DL 08/04/2024 10:[address] [facility] GLUCOSE (U) NORMAL NORMAL MG/DL 08/04/2024 10:[address] [facility] KETONES MG/DL (U) NEGATIVE NEGATIVE MG/DL 08/04/2024 10:[address] [facility] UROBILINOGEN NORMAL NORMAL MG/DL 08/04/2024 10:[address] [facility] BILIRUBIN (U) NEGATIVE NEGATIVE MG/DL 08/04/2024 10:[address] [facility] BLOOD (U) TRACE(A) NEGATIVE 08/04/2024 10:[address] [facility] MUCUS MANY /LPF 08/04/2024 10:[address] [facility] WBC/HPF 88(H) <6 /HPF 08/04/2024 10:[address] [facility] RBC/HPF 8(H) <6 /HPF 08/04/2024 10:[address] [facility] BACTERIA (U) RARE(A) NONE /HPF 08/04/2024 10:[address] [facility] SQUAMOUS EPITHELIALS RARE /HPF 08/04/2024 10:[address] [facility] URINE SPECIMEN OBTAINED BY CLEAN CATCH PROCEDURE / Unknown 08/02/2024 2:45 PM CDT us Nany Obrien DO URINE ORDERABLES Final Res ult [facility] [address] [place] [address], * (ABNORMAL) VITAMIN B-12 (08/02/2024 2:45 PM CDT) VITAMIN B12 S/P/B 230(L) 254 - 1,320 PG/ML 08/04/2024 12:[address] [facility] 08/02/2024 2:45 PM CDT us Nany Bowman Micah DO LABORATORY Final Resu lt [facility] [address] [place] [address], [place] [phone] * COMPREHENSIVE METABOLIC PANEL (08/02/2024 2:45 PM CDT) [facility] GLUCOSE 95 70 - 99 MG/DL 08/04/2024 6:44 AM CDT [facility] BUN 10 7 - 18 MG/DL 08/04/2024 6:44 AM CDT [facility] CREATININE S/P/B 0.62 0.50 - 1.20 MG/DL 08/04/2024 6:44 AM CDT [facility] SODIUM S/P/B 140 136 - 145 MMOL/L 08/04/2024 6:44 AM CDT [facility] POTASSIUM S/P/B 3.9 3.5 - 5.1 MMOL/L 08/04/2024 6:44 AM CDT [facility] CHLORIDE S/P/B 105 100 - 108 MMOL/L 08/04/2024 6:44 AM CDT [facility] CO2 27.7 21.0 - 32.0 MMOL/L 08/04/2024 6:44 AM CDT [facility] CALCIUM S/P/B 8.9 8.5 - 10.1 MG/DL 08/04/2024 6:44 AM CDT [facility] BILIRUBIN TOTAL S/P/B 0.2 0.2 - 1.2 MG/DL 08/04/2024 6:44 AM CDT [facility] Comment: THIS ASSAY IS NOT RECOMMENDED FOR PATIENTS UNDERGOING TREATMENT WITH ELTROMBOPAG DUE TO THE POTENTIAL FOR FALSELY ELEVATED RESULTS. TOTAL PROTEIN S/P/B 7.2 6.4 - 8.2 G/DL 08/04/2024 6:44 AM CDT [facility] ALBUMIN S/P/B 3.8 3.4 - 5.0 G/DL 08/04/2024 6:44 AM CDT [facility] AST 21 15 - 37 U/L 08/04/2024 6:44 AM CDT [facility] ALT 38 14 - 55 U/L 08/04/2024 6:44 AM CDT [facility] ALKALINE PHOSPHATASE S/P/B 91 50 - 136 U/L 08/04/2024 6:44 AM CDT [facility] ANION GAP 7.3 5.0 - 15.0 MMOL/L 08/04/2024 6:44 AM CDT [facility] BUN CREATININE RATIO 16.1 6 - 26 08/04/2024 6:44 AM T [facility] A/G RATIO 1.1 1.0 - 2.5 RATIO 08/04/2024 6:44 AM CDT [facility] GFR ESTIMATE >90 >90 ML/MIN/1.7 3 M2 08/04/2024 6:44 AM T [facility] Comment: NOTE: eGFR is not calculated for patients <18 years of age. This is an estimated GFR calculation using the new CKD EPI creatinine equation without race and so does not require a correction factor for race. This estimated GFR should not be used for calculating drug doses. 08/02/2024 2:45 PM CDT us Nany Obrien DO LABORATORY Final Resu lt [facility] [address] [facility] [place] [address], [place] * (ABNORMAL) LIPID PANEL (08/02/2024 2:45 PM CDT) CHOLESTEROL 190 <200 MG/DL 08/04/2024 12:[address] [facility] TRIGLYCERIDES 155(H) <150 MG/DL 08/04/2024 12:[address] [facility] HDL 40(L) >40.0 MG/DL 08/04/2024 12:[address] [facility] LDL (CALCULATED) 119(H) <100 MG/DL 08/04/2024 12:[address] [facility] Comment:CALCULATED USING THE FRIEDEWALD EQUATION NON HDL CHOLESTEROL 150(H) <130 MG/DL 08/04/2024 12:[address] [facility] CHOL/HDL RATIO 4.8(H) 0.0 - 4.5 08/04/2024 12:[address] [facility] VLDL CALCULATION 31 5 - 55 MG/DL 08/04/2024 12:[address] [facility] LIPID INTERPRETATION 08/04/2024 12:[address] [facility] Comment: NIH CONCENSUS REPORT RECOMMENDATIONS: ADULT CHILD LOW RISK: CHOLESTEROL <200 <170 TRIGLYCERIDE <150 --- HDL >=60 --- LDL <100 <110 BORDERLINE: CHOLESTEROL 200-239 170-199 TRIGLYCERIDE 150-199 --- HDL 40-59 --- LDL 100-159 110-129 HIGH RISK: CHOLESTEROL >=240 >=200 TRIGLYCERIDE >=200 --- HDL <40 --- LDL >=160 >=130 08/02/2024 2:45 PM CDT us Nany Obrien DO LABORATORY Final Resu lt [facility] [address] [place] [address], [place] [phone] * (ABNORMAL) CBC W/DIFF AUTOMATED (08/02/2024 2:45 PM CDT) WBC 9.06 4.50 - 11.00 x10'3/uL 08/04/2024 7:06 AM CDT [facility] RBC 4.69 4.00 - 5.20 x10'6/uL 08/04/2024 7:06 AM CDT [facility] HGB 14.7 12.0 - 16.0 G/DL 08/04/2024 7:06 AM CDT [facility] HCT 42.5 38.0 - 48.0 % 08/04/2024 7:06 AM CDT [facility] MCV 90.6 80.0 - 100.0 FL 08/04/2024 7:06 AM CDT [facility] MCH 31.3 26.0 - 34.0 PG 08/04/2024 7:06 AM CDT [facility] MCHC 34.6 31.0 - 37.0 G/DL 08/04/2024 7:06 AM CDT [facility] RDW 11.9 11.6 - 14.8 % 08/04/2024 7:06 AM CDT [facility] PLT 310 130 - 400 x10'3/uL 08/04/2024 7:06 AM CDT [facility] MPV 10.1 7.0 - 12.0 FL 08/04/2024 7:06 AM CDT [facility] CBC COMMENT AUTOMATED RBC MORPHOLOGY AND PLATELET EVALUATION NORMAL 08/04/2024 7:06 AM CDT [facility] NEUTROPHILS % 60.0 40.0 - 74.0 % 08/04/2024 7:06 AM CDT [facility] LYMPHOCYTES % 27.9 14.0 - 46.0 % 08/04/2024 7:06 AM CDT [facility] MONOCYTES % 6.4 4.0 - 13.0 % 08/04/2024 7:06 AM CDT [facility] EOSINOPHILS 3.5 0.0 - 7.0 % 08/04/2024 7:06 AM CDT [facility] BASOPHILS 1.0 0.0 - 3.0 % 08/04/2024 7:06 AM CDT [facility] IMMATURE GRANS % 1.2(H) 0.0 - 0.43 % 08/04/2024 7:06 AM CDT [facility] NRBC % 0.0 % 08/04/2024 7:06 AM CDT [facility] ABS. NEUTROPHILS TOTAL 5.43 1.69 - 7.81 x10'3/uL 08/04/2024 7:06 AM CDT [facility] ABS. LYMPHOCYTES 2.53 0.21 - 5.42 x10'3/uL 08/04/2024 7:06 AM CDT [facility] ABS. MONOCYTES 0.58 0.04 - 1.37 x10'3/uL 08/04/2024 7:06 AM CDT [facility] ABS. EOSINOPHILS 0.32 0.00 - 0.68 x10'3/uL 08/04/2024 7:06 AM CDT [facility] ABS. BASOPHILS 0.09(H) 0.00 - 0.08 x10'3/uL 08/04/2024 7:06 AM CDT [facility] ABS. IMMATURE GRANULOCYTES 0.11(H) 0.00 - 0.06 x10'3/uL 08/04/2024 7:06 AM CDT [facility] ABS. NUCLEATED RBC'S 0.00 0.00 - 0.01 x10'3/uL 08/04/2024 7:06 AM T [facility] 08/02/2024 2:45 PM CDT us Nany Obrien DO LABORATORY Final Resu lt [address] [place] [address], * (ABNORMAL) VITAMIN D, 25 OH (08/02/2024 2:45 PM CDT) VITAMIN D 25 HYDROXY S/P/B 16(L) 30 - 100 NG/ML 08/04/2024 10:[address] [facility] Comment: INTERPRETATION DEFICIENT <20 INSUFFICIENT 20-29 SUFFICIENT 30-100 08/02/2024 2:45 PM CDT us Nany Obrien DO LABORATORY Final Resu lt [facility] [address] [place] [address], [place] [phone] from Last 3 Months Insurance [employer] Care Teams Color Worker Relationship Specialty Start Date End Date None, Provider, PCP - General UNKNOWN PHYSICIAN SPECIALTY 07/02/23
--- OUTSIDE RECORDS SUMMARY | 2024-09-27 08:53 | XMS_ITS | Patient Health Record ---
Author Organization [facility] Address [address] [place] [address] Care Team Providers Care Manufacturing Technologist Name Role Phone Blanca Renae Primary Care Provider [phone] Brennon Cole [phone] Allergies No Known Allergies Reason For Referral No Information Medications Medication SIG (Take, Route, Frequency, Duration) Notes Start Date End Date Status Caplyta 42 MG 1 capsule Orally Onc e a day; Duration: 30 days Active Social History Tobacco Use: Social History Observation Description Date Details (start date - stop date) Unknown Sex Assigned At : Social History Observation Description Sex Assigned At Female Tobacco Control (Standard) Question Answer Notes Tobacco use: Uses tobacco in other forms Additional Findings: Tobacco user e-cigarette Problems Problem Type SNOMED Code ICD Code Onset Dates Problem Status W/U Status Risk Notes Problem Mood disorder (34299290) Mood disorder (F39) Active confirmed Problem Bipolar affective, depress, sev w/ psych (F31.5) Active confirmed Encounters Encounter Location Date Provider Diagnosis [address] [place] [address] 10/24/2023 Blanca Renae Bipolar affective, depress, sev w/ psych F31.5 [facility] [address] [place] [address] 10/01/2023 Brennon Cole Bipolar affective, depress, sev w/ psych F31.[address] [place] [address] 10/02/2023 Blanca Renae Bipolar affective, depress, sev w/ psych F31.[address] [place] [address] 10/03/2023 Blanca Renae [facility] Duncan Mckoy [address] [place] [address] [place] [address] 10/04/2023 Blanca Renae Assessments Encounter Date Diagnosis (ICD Code) Assessment Notes Treatment Notes Treatment Clinical Notes Section Notes 10/01/2023 Bipolar affective, depress, sev w/ psych (ICD-10 - F31.5) 10/02/2023 Bipolar affective, depress, sev w/ psych (ICD-10 - F31.5) 10/24/2023 Bipolar affective, depress, sev w/ psych (ICD-10 - F31.5) continue at this time, monitoring symptoms denies hallucinations/paranoi a today monitoring irritability may look to add in lamotrigine Client to continue therapy, encouraged to ask therapist if can be seen more frequently due to current irritability with stressors and feelings of being stuck. 10/24/2023 Other Reasons, potential benefits, potential risks, interactions and side effects of all medications were discussed. The Patient/Guardian asked appropriate questions, appeared to understand the answers, and decided to accept the treatment and continue being followed. Alternatives and expected course without treatment were reviewed. The Patient/Guardian is aware of the need to contact the office or return for an earlier appointment if any problems or concerns arise. May also contact the 24-hour crisis hotline ([facility]), refer to the closest emergency room or call 911 if new symptoms arise of existing symptoms worsen. The Patient/Guardian is aware that this would apply to symptoms like: suicidal ideation, homicidal ideation, high risk behaviors, manic symptoms, psychotic symptoms, physical symptoms, or any other symptoms that may be dangerous to self or others. Greater than 50% of time spent on coordination and counseling where psychopharmacology as well as psychotherapeutic interventions were discussed along with review of treatments in the past. Education provided concerning need for adequate hydration. Patient/Guardian verbalized understanding of education, treatment plan and follow up. This session was completed telephonically with client/parental/guardi an consent: Unable to determine movement status, assess appearance, affect, AIMS, or vital signs. Plan Of Treatment No Information Insurance Providers Payer Name Payer Address Payer Phone Subscriber Number Group Number Insured Name Patient Relationship to Insured Coverage Start Date Coverage End Date MEDICAID [address] [place] [phone] [id number] Julianna Tate Self - patient is the insured 4 MEDICAID [employer] [address] [place] [address] [id number] Julianna Tate Self - patient is the insured 4 4 Medical (General) History Surgical History Surgery Date(Month/Year) section
[2024-09-27 08:54] VITALS: BP 133/91; PULSE 80; RESP 16; TEMP 36.4; O2SAT 99
--- OUTSIDE RECORDS SUMMARY | 2024-09-27 08:54 | XMS_ITS | Patient Health Record ---
Author Organization [facility] Address [address] [place] [address] Care Team Providers Care Business Line Manager Name Role Phone Geovanny Ramirez Unavailable [phone] Reason For Referral No Information Medications Medication SIG (Take, Route, Frequency, Duration) Notes Start Date End Date Status ARIPiprazole 10 MG Tablet Oral 02/13/2023 Active Caplyta 42 MG Capsule 1 capsule Oral Once a day; Duration: 30 days *Reorder from [facility] for eRx and Interaction Alerts* 02/13/2023 Active Abilify 5 MG Tablet Oral 02/13/2023 Active Social History Social History Additional Details Category Social Info Options Details Migrated Social History Migrated Social History Alcohol Intake: None 12/06/2022,Tobacco Years: Current every day smoker 12/09/2019,Smoking Status: 7 01/16/2023 Problems Problem Type SNOMED Code ICD Code Onset Dates Problem Status W/U Status Risk Notes Problem Generalized anxiety disorder (07786209) Generalized anxiety disorder (F41.1) Active confirmed Plan Of Treatment No Information Insurance Providers Payer Name Payer Address Payer Phone Subscriber Number Group Number Insured Name Patient Relationship to Insured Coverage Start Date Coverage End Date [employer] [address] [address] [place] [address] [id number] SHERIDAN LOUIE Self - patient is the insured
--- OUTSIDE RECORDS SUMMARY | 2024-09-27 08:54 | XMS_ITS | Clinical Summary ---
Author Organization [facility] [employer] Address [address] [place] [address] Care Team Providers Care Cut Roll Machine Operator Name Role Phone Unavailable Primary Care Provider Unavailabl e Source Comments [facility],non-owned Affiliates and Associated Physician Practices is amultiple site organization consisting of ambulatory clinics and hospital sitesin [place], [place], [place]. This disclosure is being madepursuant to the Care Everywhere program and may not contain all information available regarding this patient. Last updated 17.[facility] Allergies No known active allergies Medications * Be aware that medications may not be up to date on this document. Alwaysverify current medications with the patient. escitalopram (LEXAPRO) 20 MG tabletIndicati ons:Major Depressive Disorder,Postt raumatic Stress Disorder Take 20 mg by mouth once daily Reasons: Major Depressive Disorder, Posttraumatic Stress Disorder Active ARIPiprazole (ABILIFY) 2 MG tablet Take by mouth once daily Active hydrOXYzine hcl (ATARAX) 50 MG tabletIndicati ons:Anxiety,sl eep Take 50 mg by mouth at bedtime Reasons: Feeling Anxious, sleep Active Active Problems Problem Noted Date Diagnosed Date [place] 12/29/2019 Overview (12/29/2019): O+, Antibody-NEG, Not Immune, Rpr-NR, Hbsag-NR, HIV-NR, HCV RNA-NEG H/h/p: 12.9/37.5/281 HgA1c- 5.3 Medication exposure during first trimester of pr egnancy 12/22/2019 Overview (12/24/2019): Use of Hydroxyzine, lexapro and Abilify/ Pt reports no celexa use. Family History Relation Name Status Comments Father Alive Mother Social History Tobacco Use Types Packs/Day Years Used Date Smoking Tobacco: Every Day Cigarettes 1 18.6 Started: 2006 Smokeless Tobacco: Never Alcohol Use Standard Drinks/Week Comments Not Currently 0 (1 standard drink = 0.6 oz pur e alcohol) Comments No Sex and Gender Information Value Date Recorded Sex Assigned at Not on file Legal Sex Female 7:21 AM LICENSED INVESTMENT SALES ASSISTANT Gender Identity Not on file Sexual Orientation Not on file Last Filed Vital Signs Vital Sign Reading Time Taken Comments Blood Pressure 121/67 12/24/2019 11:37 AM LICENSED INVESTMENT SALES ASSISTANT Pulse 83 12/24/2019 11:37 AM LICENSED INVESTMENT SALES ASSISTANT Temperature 36.4 C (97.5 F) 03/19/2020 9:46 AM LICENSED INVESTMENT SALES ASSISTANT Respiratory Rate - - Oxygen Saturation - - Inhaled Oxygen Concentration - - Weight 117.5 kg (259 lb) 12/24/2019 11:37 AM LICENSED INVESTMENT SALES ASSISTANT Height 167.6 cm (5' 6) 12/24/2019 11:37 AM LICENSED INVESTMENT SALES ASSISTANT Body Mass Index 41.8 12/24/2019 11:37 AM LICENSED INVESTMENT SALES ASSISTANT Plan of Treatment Health Maintenance Due Date Last Done Comments HIV SCREENING 2009 HEPATITIS C SCREENING 05/11/2012 DTAP/TDAP/TD VACCINES (1 - Tdap) 2013 HEPATITIS B VACCINE (1 of 3 - 19+ 3-dose series) 2013 PNEUMOCOCCAL VACCINE (1 of 2 - PCV) 2013 HPV VACCINE (1 - 3-dose SCDM series) 2021 COVID-19 VACCINE (1 - 2023-2 5 season) 2023 DEPRESSION SCREENING 02/06/2024 INFLUENZA VACCINE (#1) 2024 ZOSTER VACCINE (1 of 2) 2044 HIB VACCINE Aged Out No longer eligi ble based on patient's age to complete this topic MENINGOCOCCAL (Group B) VACC INE SHARED DECISION-MAKING Aged Out No longer eligibl e based on patient's age to complete this topic MENINGOCOCCAL GROUPS A/C/Y/W VACCINE Aged Out No longer eligible b ased on patient's age to complete this topic Insurance DERRELL
--- NOTE | 2024-09-27 12:15 | ED.EXTPRO ---
HPI - Extremity Problem General Chief complaint: Extremity Problem,Nontraumatic Stated complaint: L. foot pain. ambulatory Time Seen by Provider: 09/27/24 08:53 History of Present Illness HPI Narrative: Patient is a 29-year-old female who presents ER with swelling to left foot. Occurs with standing. Worsening over last 2 weeks. Has pain moving into the calf. No chest pain or shortness of breath. She has an IUD for control. Swelling in the leg is worse with standing and better with elevation. Related Data Allergies Allergy/AdvReac Type Severity Reaction Status Date / Time No Known Allergies Allergy Verified 09/27/24 08:58 Review of Systems Constitutional: Constitutional: Reports no additional constitutional complaints Musculoskeletal: Musculoskeletal: Reports no additional musculoskeletal complaints Integumentary/Breasts: Skin/Breast: Reports system reviewed and no additional complaints, except as docu PMFSH Past Medical History Medical History (Updated 09/27/24 @ 12:16 by Duran Feliz MD) Hirsutism PCOS (polycystic ovarian syndrome) Family History Family History Mother Asthma Father Family history of arthritis Social History Social History (Updated 10/28/19 @ 14:09 by Chinyere Stuart) Social History: Single Smoking packs per day: 10 Smoking cigarettes per day: 200.0 Years smoked: 12 Smoking pack-years: 120.00 Smoking status: Current every day smoker Tobacco type: cigarettes Second hand tobacco smoke exposure: Yes Alcohol intake: current Alcohol use details: occasionally Substance use: current Substance use type: does not use Living arrangements: with family Occupation/Education: occupation Gender identity (if verbalized by the patient): Female Sexual Orientation (if Verbalized by the Patient): Straight or Heterosexual Spiritual care concerns: No Exam Narrative: GENERAL: Well-appearing, well-nourished, and in no acute distress. HEAD: Normocephalic, atraumatic. ENT: Mucous membranes moist. CHEST: Clear to auscultation. No respiratory distress. HEART: Regular rate and rhythm. Normal peripheral pulses. EXTREMITIES: Normal range of motion. No edema. Mild tenderness the medial ankle on left side. SKIN: Warm, dry, no rash. NEURO: Alert and oriented x3. PSYCH: Normal mood and affect. Course Course Emergency Course: Educated on imaging results, discussed treatment plan. Discharge home. Vital Signs Vital signs: Vital Signs Temperature 97.6 F 09/27/24 08:54 Pulse Rate 80 09/27/24 08:54 Respiratory Rate 16 09/27/24 08:54 Blood Pressure 133/91 H 09/27/24 08:54 Pulse Oximetry 99 09/27/24 08:54 Oxygen Delivery Room Air 09/27/24 08:54 Temperature 97.6 F 09/27/24 08:54 Pulse Rate 80 09/27/24 08:54 Respiratory Rate 16 09/27/24 08:54 Blood Pressure 133/91 H 09/27/24 08:54 Pulse Oximetry 99 09/27/24 08:54 Oxygen Delivery Room Air 09/27/24 08:54 MDM - Extremity (Nontraumatic) Imaging Data Radiologist's impression: ITS Impressions Ankle X-Ray 09/27/24 09:33 IMPRESSION: 1: NO ACUTE BONE OR JOINT ABNORMALITY IDENTIFIED. Venous Doppler Study 09/27/24 11:04 IMPRESSION: 1: No lower extremity deep venous thrombosis. Discharge Plan Discharge Clinical Impression: Ankle pain Patient Disposition: Home Condition: Stable Additional Instructions: You do not have a blood clot in your leg in you have no fracture to her ankle. Wear compression stockings if you are worried about swelling and discomfort. Take Tylenol or ibuprofen as needed for pain. Patient Language: Portuguese Prescriptions: No Action docusate sodium 100 mg Capsule 100 mg PO BID PRN (Reason: constipation) Qty: 60 1RF hydrocodone-acetaminophen 5-325 mg Tablet 1 tablet PO Q4-6H PRN (Reason: Moderate Pain (4-6)) Qty: 30 0RF ibuprofen 600 mg Tablet 600 mg PO Q6H PRN (Reason: Cramping) Qty: 60 1RF Follow-up/Referrals: PHYSICIAN,TERRAZZO FINISHER [Primary Care Provider, Internal Medicine] Александр Blankenship MD [Physician, Family Practice] - 1 Week
== END 2024-09-27 12:43 | disposition home or self-care (01) ==
PROVIDERS: Emergency Provider Emergency Medicine
DX: M25.572 Pain in left ankle and joints of left foot (principal); E28.2 Polycystic ovarian syndrome; F17.210 Nicotine dependence, cigarettes, uncomplicated; Z97.5 Presence of (intrauterine) contraceptive device
CPT/HCPCS: 73610; 93971; 99284

== ENCOUNTER 2025-01-18 14:43 | Emergency (ER) | payer OTHER, SELFPAY ==
--- OUTSIDE RECORDS SUMMARY | 2018-03-25 11:50 | XMS_ITS | Continuity of Care Document ---
Author Organization [facility] Address [address] [place] [address] Phone Care Team Providers Care Chemistry Quality Control Technician Name Role Phone Ken MS, OTR/L, CHT, Laury Unavailable Unavailable Procedures Procedure Date OT Evaluation Low Complexity Therapeutic Exercise Neuromuscular Re-Ed Advance Directives Directive Yes / No Effective Date File Name No Information Encounters Encounter Description Practice Location Reason(s) For Visit Diagnoses Date Provider Providers Copied on Encounter [facility], [address], [id number], tel:[phone] [place] No Information 9 Ken Schaeffer. [address] [facility], [address], [facility], [place]. tel:[phone] [facility], [address], [id number], tel:[phone] [place] Paresthesia of skinPain in right handOth symptoms and signs involving the musculoskeletal systemMuscle weakness (generalized)Ot her general symptoms and signsCarpal tunnel syndrome, bilateral upper limbsLesion of ulnar nerve, bilateral upper limbs b201 9 Ken Schaeffer. [address] [facility], [address], [place], [place], [facility], . tel:[phone] Referring Provider: Chinyere Kramer, [address] [place] [address] [place], [address]. tel:[phone] Family History Family Member Type Diagnosis Age At Onset No Information Payers Payer name Insurance type Covered constitution party ID Authoriza elio(s) [facility] [id number] Social History Type Description Quantity Date Captured Comments Sex Female Smoking Status No Information Chief Complaint And Reason For Visit No Information Reason For Referral Reason For Referral No Information History Of Present Illness Encounter Date Complaint History Of Prese nt Illness No Information Functional Status Date Functional Assessmen t No Information Instructions Date Instruction Additional Infor mation No Information Assessments Type Assessment Date No Information Patient Care Teams Name Effective Dates (start - stop) Status Members No Information
--- OUTSIDE RECORDS SUMMARY | 2018-03-25 11:50 | XMS_ITS | Continuity of Care Document ---
Author Organization [facility] Address [address] [place] [address] Phone Care Team Providers Care Gamma Ray Operator Name Role Phone Ken MS, OTR/L, CHT, Laury Unavailable Unavailable Procedures Procedure Date OT Evaluation Low Complexity Therapeutic Exercise Neuromuscular Re-Ed Advance Directives Directive Yes / No Effective Date File Name No Information Encounters Encounter Description Practice Location Reason(s) For Visit Diagnoses Date Provider Providers Copied on Encounter [facility], [address], [id number], tel:[phone] [place] No Information 9 Ken Schaeffer. [address] [facility], [address], [facility], [place]. tel:[phone] [facility], [address], [id number], tel:[phone] [place] Paresthesia of skinPain in right handOth symptoms and signs involving the musculoskeletal systemMuscle weakness (generalized)Ot her general symptoms and signsCarpal tunnel syndrome, bilateral upper limbsLesion of ulnar nerve, bilateral upper limbs b201 9 Ken Schaeffer. [address] [facility], [address], [place], [place], [facility], . tel:[phone] Referring Provider: Chinyere Kramer, [address] [place] [address] [place], [address]. tel:[phone] Family History Family Member Type Diagnosis Age At Onset No Information Payers Payer name Insurance type Covered republican ID Authoriza elio(s) [facility] [id number] Social History Type Description Quantity Date Captured [...]
--- OUTSIDE RECORDS SUMMARY | 2023-09-10 10:00 | XMS_ITS ---
Author Organization [facility] Address [address] [place] [address] Phone [phone] Care Team Providers Care Tool Filer Name Role Phone Blanca Renae Primary Care Provider [phone] Brennon Cole APRN [phone] REASON FOR VISIT 3 Week F/U Medications Medication SIG (Take, Route, Frequency, Duration) Notes Start Date End Date Diagnosis (ICD Code) Status Caplyta 42 MG Capsule 1 capsule Orally Once a day; Duration: 30 days Client to update insurance. Has secondary [facility] now. Should be able to get coverage with PA and coupon, however can we use samples please until we get this straightened out? 08/22/2023 Bipolar affective, depress, sev w/ psych (ICD_10 - F31.5) Active Lurasidone HCl 20 MG Tablet 1 tablet in the evening with food Orally Once a day; Duration: 7 days 07/09/2023 Bipolar affective, depress, sev w/ psych (ICD_10 - F31.5) Active Social History Sex Observation Social History Observation Description Sex Observation Female Sexual Orientation Social History Observation Description Sexual Orientation Straight or heterose xual Gender Identity Social History Observation Description Gender Identity Female Encounters Date Time Type Facility Location Provider Diagnosis 09/10/2023 10:00 AM Office Visit [address] [place] [address] Brennon Cole Plan Of Treatment No Information Medical (General) History Surgical History Surgery Date(Month/Year) section Progress Notes * Julianna LOUIEDOB:1995 (29 yo F)Acc No.[id number]:09/10/2023 UNLOCKED PROGRESS NOTE Patient: Julianna CAICEDO [facility]1995 A ge:28 Y S ex:Female Date:09/10/2023 Phone: Address:[address] [place], [place] [phone] Pcp:Blanca Renae Subjective: * Chief Complaints: * 1 . 3 Week F/U. * Screening: * * Medical History: * Medications: T aking Lurasidone HCl 20 MG Tablet 1 tablet in the evening with food Orally Once a day , Taking Caplyta 42 MG Capsule 1 capsule Orally Once a day , Notes to Pharmacist: Client to update insurance. Has secondary [facility] now. Should be able to get coverage with PA and coupon, however can we use samples please until we get this straightened out? Objective: * Vitals: Assessment: Plan: * Treatment: * * Electronic signature of Maxi Cole , CYLINDER HONER, [id number] on 01/18/2025 at 02:45 PM FINANCE ASSISTANT Sign off status: Pending * Provider: Luis Cole DNP, [facility]- Date: 0 09/10/2023 Generated for Lucius sultana/Brooks/Nimco on: 1 03/21/2024 02:45 PM FINANCE ASSISTANT
--- OUTSIDE RECORDS SUMMARY | 2023-10-15 16:00 | XMS_ITS ---
Author Organization [facility] include [facility] beds at the [facility] Address [address] [place] [address] Phone [phone] Care Team Providers Care Lockstitch Front Edge Tape Sewer Name Role Phone Blanca Renae Primary Care Provider [phone] Brennon Cole APRN REASON FOR VISIT 1 Month Psych F/U & Med Refill Medications Medication SIG (Take, Route, Frequency, Duration) Notes Start Date End Date Diagnosis (ICD Code) Status Lurasidone HCl 20 MG Tablet 1 tablet in the evening with food Orally Once a day; Duration: 7 days 07/09/2023 Bipolar affective, depress, sev w/ psych (ICD_10 - F31.5) Active Caplyta 42 MG Capsule 1 capsule Orally Once a day; Duration: 13 days 08/22/2023 Bipolar affective, depress, sev w/ psych (ICD_10 - F31.5) Active Social History Sex Observation Social History Observation Description Sex Observation Female Sexual Orientation Social History Observation Description Sexual Orientation Straight or heterose xual Gender Identity Social History Observation Description Gender Identity Female Encounters Date Time Type Facility Location Provider Diagnosis 10/15/2023 04:00 PM Office Visit [address] [address] Brennon Cole Plan Of Treatment No Information Medical (General) History Surgical History Surgery Date(Month/Year) section Progress Notes * Julianna LOUIEDOB:1995 (29 yo F)Acc No.[id number]:10/15/2023 UNLOCKED PROGRESS NOTE Patient: Julianna CAICEDO Provider: Luis Cole DNP, [facility]- :1995 A ge:28 Y S ex:Female Date:10/15/2023 Phone: Address:[address] [place], [place] [phone] Pcp:Blanca Renae Subjective: * Chief Complaints: * 1 . 1 Month Psych F/U & Med Refill. * Screening: * * Medical History: * Medications: T aking Lurasidone HCl 20 MG Tablet 1 tablet in the evening with food Orally Once a day , Taking Caplyta 42 MG Capsule 1 capsule Orally Once a day Objective: * Vitals: Assessment: Plan: * Treatment: * * Electronic signature of Maxi Cole , DEVANTE, [id number] on 01/18/2025 at 03:17 PM CUSTOMS CONSULTANT Sign off status: Pending * Provider: Luis Cole DNP, [facility]- Date: 0 10/15/2023 Generated for Lucius sultana/Brooks/Janissmitting on: 1 03/21/2024 03:17 PM CUSTOMS CONSULTANT
--- NOTE | ~2025-01-18 | CT_ITS ---
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 TECHNIQUE: CT scan of the abdomen and pelvis was performed without IV contrast. One or more of the following dose reduction techniques were used: automated exposure control, adjustment of the mA and/or kV according to patient size, use of iterative reconstruction technique. Unless otherwise stated, incidental findings do not require dedicated follow up imaging FINDINGS: CT abdomen: LUNG BASES: The lung bases are clear. The visualized portions of the heart and pericardium are unremarkable. LIVER: Unremarkable, liver contours intact, no lesions. SPLEEN: Unremarkable, no splenomegaly. KIDNEYS: Right Kidney: Right kidney renal calculi the largest lower pole 3 mm, no hydronephrosis or hydroureter. Left Kidney: Left kidney renal calculi the largest mid pole 3 mm, no hydronephrosis or hydroureter. ADRENAL GLANDS: Unremarkable. PANCREAS: Unremarkable. GALLBLADDER/BILIARY: Cholelithiasis. STOMACH AND ESOPHAGUS: Minimal thickening of the esophagus may represent mild esophagitis. Small hiatal hernia. BOWEL/MESENTERY: Moderate fecal content. No colitis or diverticulitis. Appendix not identified, there is stranding surrounding the mesentery. No thickened or dilated loops of small bowel. ADENOPATHY/RETROPERITONEUM: No lymphadenopathy. AORTA/VASCULATURE: Normal caliber aorta. FREE FLUID OR FREE AIR: No free fluid.. CT pelvis: SOLID ORGANS/REPRODUCTIVE: IUD appears low lying Within the uterine cavity, one of the arms of the IUD appears to project into the myometrium.. No adnexal mass. BLADDER: Within normal limits. OSSEOUS STRUCTURES: No acute osseous abnormality.No suspicious lesions. OVERLYING SOFT TISSUES: Unremarkable. IMPRESSION: 1. No acute intra-abdominal process. 2. Malpositioned IUD detailed above. Ultrasound is recommended Reviewed, dictated and finalized at location P. [employer] COVERAGE SPECIALIST
[2025-01-18 14:44] VITALS: BP 140/99; PULSE 98; RESP 18; TEMP 36.4; O2SAT 100
--- OUTSIDE RECORDS SUMMARY | 2025-01-18 14:45 | XMS_ITS | Encounter Summary ---
Author Organization [facility] Address [facility] [place] [address] Care Team Providers Care Affiliate Marketing Specialist Name Role Phone Renea Brewster APRN Primary Care Provider [phone] Encounter Details Date Type Department Care Team (Late st Contact Info) Description 11/18/2024 Results Follow-Up [address] [place] [address] Renea Brewster APRN [address] [place] [address] [phone] IRON SAT PANEL (IRON,IBC,%SAT), FERRITIN, PRO-BRAIN NATRIURETIC PEPTIDE, Additional followed-up results: 5 Social History Tobacco Use Types Packs/Day Years Used Date Smoking Tobacco: Never Smokeless Tobacco: Never Alcohol Use Standard Drinks/Week Comments Not Currently 0 (1 standard drink = 0.6 oz pur e alcohol) PHQ-2 Answer Date Recorded Patient Health Questionnaire-2 Score 2 10/21/2024 Comments No Sex and Gender Information Value Date Recorded Sex Assigned at Female 10/21/2024 12:16 PM CDT Legal Sex Female 6:07 PM CDT Gender Identity Female 10/21/2024 12:16 PM CDT Sexual Orientation Not on file documented as of this encounter Progress Notes * Theresa Alas LPN - 11/20/2024 11:23 AM CDT Please review/advise. documented in this encounter Plan of Treatment Upcoming Encounters Date Type Department Care Team (Late st Contact Info) Description 01/26/2025 1:00 PM MATE SHIP Office Visit [address] [place] [address] Kareen Crowell V, [address] [address] documented as of this encounter Visit Diagnoses Not on filedocumented in this encounter Additional Health Concerns Infection Onset Date Last Indicated Resolved Time COVID-19 Rule Out 12/03/2024 12/03/2024 12/03/2024 1:03 PM CDT documented as of this encounter Care Teams Affiliate Marketing Specialist Relationship Specialty Start Date End Date Renea Brewster APRN PCP - General NURSE PRACTITIONER 11/18/24 documented as of this encounter
--- OUTSIDE RECORDS SUMMARY | 2025-01-18 14:45 | XMS_ITS | Data Portability ---
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 Kyleena insertion. She will be scheduled for Kyleena insertion. We discussed various contraceptive methods. Will Deshpande MD [address], [place], [address], [facility] 08/04/2020 19:22:13 08/12/2020 text/html Patient presents for IUD insertion. Will Deshpande MD [address], [place], [address], [facility] 08/15/2020 18:32:19 OBGyn Episode Ob Episode Information Episode Created Date Number of Fetuses Patient Bloodtype Patient rh Status Prepregnancy Weight lbs Domestic Partner Domestic Partner Phone Father Name Rating Clerk Status 07/07/19 20 1 DELETED Tima Calculation Initial Tima Date Initial Exam Date Initial Exam Provider Initial Ultrasound Date Last Menstrual Period Date Ultra Sound Weeks Gestation 0 Eighteen To Twenty Week Tima Update Ultra Sound Date Fundal Height At Umbil Quickening Date Ultra Sound Latest Weeks Gestation Final Tima Confirmed By Final Tima Confirmed Date Final Tima Date Ultra Sound Latest Days Gestation 0 0 Menstrual History Last Menstrual Date Menses Monthly On Bcp Conception Prior Menses Frequency Hcg Plus Date Menarche Onset Age Delivery Information Delivery Date Delivery Type Labor Anesthesia Weeks Gestation Incision Type Labor Labor Length Hrs Delivered By Post Complications Tubal Sterilization Discharge Date Comments 2 Discharge Information Feeding Method Contraceptive Method Maternal HG B and HCT Levels Ob Episode Information Episode Created Date Number of Fetuses Patient Bloodtype Patient rh Status Prepregnancy Weight lbs Domestic Partner Domestic Partner Phone Father Name Rating Clerk Status 11/26/19 20 1 CLOSED Fetus Data First Name Last Name Admitted to NICU Weight (g) Sex Living Outcome Pediatric Complications Fetus ID Race Codes Race Delivery Type 3033.16 9704 M Full Term 5535 Primary Tima Calculation Initial Tima Date Initial Exam Date Initial Exam Provider Initial Ultrasound Date Last Menstrual Period Date Ultra Sound Weeks Gestation 0 Eighteen To Twenty Week Tima Update Ultra Sound Date Fundal Height At Umbil Quickening Date Ultra Sound Latest Weeks Gestation Final Tima Confirmed By Final Tima Confirmed Date Final Tima Date Ultra Sound Latest Days Gestation 0 0 Menstrual History Last Menstrual Date Menses Monthly On Bcp Conception Prior Menses Frequency Hcg Plus Date Menarche Onset Age Delivery Information Delivery Date Delivery Type Labor Anesthesia Weeks Gestation Incision Type Labor Labor Length Hrs Delivered By Post Complications Tubal Sterilization Discharge Date Comments 5 40 Discharge Information Feeding Method Contraceptive Method Maternal HG B and HCT Levels Ob Episode Information Episode Created Date Number of Fetuses Patient Bloodtype Patient rh Status Prepregnancy Weight lbs Domestic Partner Domestic Partner Phone Father Name Rating Clerk Status 12/17/19 20 1 O Positive 252 CLOSED Fetus Data First Name Last Name Admitted to NICU Weight (g) Sex Living Outcome Pediatric Complications Fetus ID Race Codes Race Delivery Type 3288.54 2 M true Full Term 6048 Repeat Problems Problem Notes [facility] Rpt Level II 03-19-20 9: 00AM - completed & anatomy complete Problem Name Start Date End Date Resolution Snomed Code Not e Anxiety [id number] Inform ped s of Lexapro and Abilify use! Ok to continue both per MFM- Pt stopped all medications cold turkey a couple weeks ago- EPDS Muscular dystrophy [id number] F ather of Baby has disease. Offered testing to pt. - declined. delivery - delivered [phone] wants repeat CS - scheduled 06/25/20 Obesity 12/08/2019 [id number] 32 wk ant enatal testing Tima Calculation Initial Tima Date Initial Exam Date Initial Exam Provider Initial Ultrasound Date Last Menstrual Period Date Ultra Sound Weeks Gestation 07/05/2020 12/17/2019 11/26/2019 09/29/2019 8 Eighteen To Twenty Week Tima Update Ultra Sound Date Fundal Height At Umbil Quickening Date Ultra Sound Latest Weeks Gestation Final Tima Confirmed By Final Tima Confirmed Date Final Tima Date Ultra Sound Latest Days Gestation 0 [email or web address] 12/17/2019 07/03/19 21 0 Pre-jose Flowsheet Flowsheet Date 11/26/2019 Pedersen Score Blood Edema Fundus Height Fundus Units Glucose Ketones Leukocytes Nitrite Labor Signs Protein Cervic Dilation Cervic Effacement Cervic Station Type Weight in lbs Pre/Post Dialysis Refused BP Diastolic BP Location Tested BP Systolic BP Type Fetus Heart Rate Present Fetus Movement Comments Flowsheet Date 12/17/2019 Pedersen Score Blood Edema Fundus Height Fundus Units Glucose Ketones Leukocytes Nitrite Labor Signs Protein Cervic Dilation Cervic Effacement Cervic Station 13 Type Weight in lbs Pre/Post Dialysis Refused Weight 258.050452812521 BP Diastolic BP Location Tested BP Systolic BP Type 83 R arm 125 sitting Fetus Heart Rate Present A 158 Fetus Movement Comments This patient is a 24-year-ol d 5 para 1031 at 11 weeks and 5 days gestation who presents for initial visit. She has a consort that has the muscular dystrophy disease and is disabled. She was offered testing but declined. She has a previous delivery. We talked about the risk associated with . She is going to consider . She has anxiety. She is on SSRI and hydroxyzine. she will begin routine care. Flowsheet Date 01/21/2020 Pedersen Score Blood Edema Fundus Height Fundus Units Glucose Ketones Leukocytes Nitrite Labor Signs Protein Cervic Dilation Cervic Effacement Cervic Station Type Weight in lbs Pre/Post Dialysis Refused BP Diastolic BP Location Tested BP Systolic BP Type Fetus Heart Rate Present Fetus Movement Comments Flowsheet Date 01/21/2020 Pedersen Score Blood Edema Fundus Height Fundus Units Glucose Ketones Leukocytes Nitrite Labor Signs Protein Cervic Dilation Cervic Effacement Cervic Station neg none trace Type Weight in lbs Pre/Post Dialysis Refused Weight 257.589330942868 BP Diastolic BP Location Tested BP Systolic BP Type 82 131 Fetus Heart Rate Present A 150 Fetus Movement A No Comments Doing well. Had gender US to day- doing reveal on xmas. Anatomy US scheduled with M, echo after that. has decided she definitely wants R CS. Will schedule after anatomy US . Has not had flu shot- encouraged, pt will get. Anxiety is pretty good now that back on meds for a while. Flowsheet Date 04/06/2020 Pedersen Score Blood Edema Fundus Height Fundus Units Glucose Ketones Leukocytes Nitrite Labor Signs Protein Cervic Dilation Cervic Effacement Cervic Station none 29 neg Type Weight in lbs Pre/Post Dialysis Refused Weight 265.629358491806 BP Diastolic BP Location Tested BP Systolic BP Type 81 133 Fetus Heart Rate Present A 144 Fetus Movement A Yes Comments Pt declines NIPT. Doing well . Having a boy Francisco. 28 week labs today. Flowsheet Date 05/25/2020 Pedersen Score Blood Edema Fundus Height Fundus Units Glucose Ketones Leukocytes Nitrite Labor Signs Protein Cervic Dilation Cervic Effacement Cervic Station Type Weight in lbs Pre/Post Dialysis Refused BP Diastolic BP Location Tested BP Systolic BP Type Fetus Heart Rate Present Fetus Movement Comments Flowsheet Date 05/25/2020 Pedersen Score Blood Edema Fundus Height Fundus Units Glucose Ketones Leukocytes Nitrite Labor Signs Protein Cervic Dilation Cervic Effacement Cervic Station Type Weight in lbs Pre/Post Dialysis Refused BP Diastolic BP Location Tested BP Systolic BP Type Fetus Heart Rate Present Fetus Movement Comments Flowsheet Date 05/28/2020 Pedersen Score Blood Edema Fundus Height Fundus Units Glucose Ketones Leukocytes Nitrite Labor Signs Protein Cervic Dilation Cervic Effacement Cervic Station Type Weight in lbs Pre/Post Dialysis Refused BP Diastolic BP Location Tested BP Systolic BP Type Fetus Heart Rate Present Fetus Movement Comments Flowsheet Date 05/28/2020 Pedersen Score Blood Edema Fundus Height Fundus Units Glucose Ketones Leukocytes Nitrite Labor Signs Protein Cervic Dilation Cervic Effacement Cervic Station 36 trace Type Weight in lbs Pre/Post Dialysis Refused Weight 266.794041439976 BP Diastolic BP Location Tested BP Systolic BP Type 88 R arm 133 sitting Fetus Heart Rate Present A 145 Fetus Movement Comments Patient discontinued her psy ch meds. She says she feels really good. She has had was difficult initially. Has scheduled. DBS the today. Flowsheet Date 06/01/2020 Pedersen Score Blood Edema Fundus Height Fundus Units Glucose Ketones Leukocytes Nitrite Labor Signs Protein Cervic Dilation Cervic Effacement Cervic Station Type Weight in lbs Pre/Post Dialysis Refused BP Diastolic BP Location Tested BP Systolic BP Type Fetus Heart Rate Present Fetus Movement Comments Flowsheet Date 06/04/2020 Pedersen Score Blood Edema Fundus Height Fundus Units Glucose Ketones Leukocytes Nitrite Labor Signs Protein Cervic Dilation Cervic Effacement Cervic Station Type Weight in lbs Pre/Post Dialysis Refused BP Diastolic BP Location Tested BP Systolic BP Type Fetus Heart Rate Present Fetus Movement Comments Flowsheet Date 06/04/2020 Pedersen Score Blood Edema Fundus Height Fundus Units Glucose Ketones Leukocytes Nitrite Labor Signs Protein Cervic Dilation Cervic Effacement Cervic Station neg none trace Type Weight in lbs Pre/Post Dialysis Refused Weight 266.918955434938 BP Diastolic BP Location Tested BP Systolic BP Type 84 124 Fetus Heart Rate Present Fetus Movement A Yes Comments NST reactive, gbs last visit , doing well, precautions reviewed Flowsheet Date 06/08/2020 Pedersen Score Blood Edema Fundus Height Fundus Units Glucose Ketones Leukocytes Nitrite Labor Signs Protein Cervic Dilation Cervic Effacement Cervic Station Type Weight in lbs Pre/Post Dialysis Refused BP Diastolic BP Location Tested BP Systolic BP Type Fetus Heart Rate Present Fetus Movement Comments Flowsheet Date 06/08/2020 Pedersen Score Blood Edema Fundus Height Fundus Units Glucose Ketones Leukocytes Nitrite Labor Signs Protein Cervic Dilation Cervic Effacement Cervic Station Type Weight in lbs Pre/Post Dialysis Refused BP Diastolic BP Location Tested BP Systolic BP Type Fetus Heart Rate Present Fetus Movement Comments Flowsheet Date 06/11/2020 Pedersen Score Blood Edema Fundus Height Fundus Units Glucose Ketones Leukocytes Nitrite Labor Signs Protein Cervic Dilation Cervic Effacement Cervic Station Type Weight in lbs Pre/Post Dialysis Refused BP Diastolic BP Location Tested BP Systolic BP Type Fetus Heart Rate Present Fetus Movement Comments Flowsheet Date 06/11/2020 Pedersen Score Blood Edema Fundus Height Fundus Units Glucose Ketones Leukocytes Nitrite Labor Signs Protein Cervic Dilation Cervic Effacement Cervic Station neg none 38 trace Type Weight in lbs Pre/Post Dialysis Refused Weight 269.423031674479 BP Diastolic BP Location Tested BP Systolic BP Type 81 140 Fetus Heart Rate Present A 140 Fetus Movement A Yes Comments Doing ok. EPDS 7. Has good d ays and bad days since stopping her meds. Disucssed she is high risk for pp depression/anxiety. She will consider restarting lexapro after delivery.NST reactive. R CS in 2 weeks, questions answered. Flowsheet Date 06/15/2020 Pedersen Score Blood Edema Fundus Height Fundus Units Glucose Ketones Leukocytes Nitrite Labor Signs Protein Cervic Dilation Cervic Effacement Cervic Station Type Weight in lbs Pre/Post Dialysis Refused BP Diastolic BP Location Tested BP Systolic BP Type Fetus Heart Rate Present Fetus Movement Comments Flowsheet Date 06/18/2020 Pedersen Score Blood Edema Fundus Height Fundus Units Glucose Ketones Leukocytes Nitrite Labor Signs Protein Cervic Dilation Cervic Effacement Cervic Station Type Weight in lbs Pre/Post Dialysis Refused BP Diastolic BP Location Tested BP Systolic BP Type Fetus Heart Rate Present Fetus Movement Comments Flowsheet Date 06/18/2020 Pedersen Score Blood Edema Fundus Height Fundus Units Glucose Ketones Leukocytes Nitrite Labor Signs Protein Cervic Dilation Cervic Effacement Cervic Station neg none 38 trace 0cm Type Weight in lbs Pre/Post Dialysis Refused Weight 272.880736553643 BP Diastolic BP Location Tested BP Systolic BP Type 81 137 Fetus Heart Rate Present A 135 Fetus Movement A Yes Comments Doing ok. Mood fine. Decided to restart lexapro after delivery. Rare contractions. Discussed CS, consented, questions answered. Flowsheet Date 06/22/2020 Pedersen Score Blood Edema Fundus Height Fundus Units Glucose Ketones Leukocytes Nitrite Labor Signs Protein Cervic Dilation Cervic Effacement Cervic Station Type Weight in lbs Pre/Post Dialysis Refused BP Diastolic BP Location Tested BP Systolic BP Type 88 143 Fetus Heart Rate Present Fetus Movement Comments Flowsheet Date 06/22/2020 Pedersen Score Blood Edema Fundus Height Fundus Units Glucose Ketones Leukocytes Nitrite Labor Signs Protein Cervic Dilation Cervic Effacement Cervic Station Type Weight in lbs Pre/Post Dialysis Refused BP Diastolic BP Location Tested BP Systolic BP Type Fetus Heart Rate Present Fetus Movement Comments Flowsheet Date 06/25/2020 Pedersen Score Blood Edema Fundus Height Fundus Units Glucose Ketones Leukocytes Nitrite Labor Signs Protein Cervic Dilation Cervic Effacement Cervic Station Type Weight in lbs Pre/Post Dialysis Refused BP Diastolic BP Location Tested BP Systolic BP Type Fetus Heart Rate Present Fetus Movement Comments Flowsheet Date 07/02/2020 Pedersen Score Blood Edema Fundus Height Fundus Units Glucose Ketones Leukocytes Nitrite Labor Signs Protein Cervic Dilation Cervic Effacement Cervic Station Type Weight in lbs Pre/Post Dialysis Refused Weight 272.638969844482 BP Diastolic BP Location Tested BP Systolic BP Type 104 R arm 151 sitting 107 L arm 154 sitting Fetus Heart Rate Present Fetus Movement Comments Flowsheet Date 07/06/2020 Pedersen Score Blood Edema Fundus Height Fundus Units Glucose Ketones Leukocytes Nitrite Labor Signs Protein Cervic Dilation Cervic Effacement Cervic Station Type Weight in lbs Pre/Post Dialysis Refused BP Diastolic BP Location Tested BP Systolic BP Type 100 R arm 171 sitting 100 R arm 148 sitting Fetus Heart Rate Present Fetus Movement Comments Menstrual History Last Menstrual Date Menses Monthly On Bcp Conception Prior Menses Frequency Hcg Plus Date Menarche Onset Age 0809/29/2019 Genetic Screening And Infection History Question Response Note Mental Retardation/Autism false Patient's Age Will Be 35 Years Or Older At Estim ated Date of Delivery false Thalassemia (Serbian, Mosotho, Mediterranean, Or Background): MCV < 80 false Neural Tube Defect (Meningomyelocele, Spina Bifi da, Or Anencephaly) false Congenital Heart Defect false Down Syndrome false Syed-Sachs (eg, Mosque, Cajun, Estonian-[place]) f alse Mariaelena Disease false Sickle Cell Disease Or Trait () false Hemophilia Or Other Blood Disorders false Muscular Dystrophy false Cystic Fibrosis false Naz's Chorea false Intellectual Disability/Autism false If Yes, Was Person Tested For Fragile X? false Other Inherited Genetic Or Chromosomal Disorder false Maternal Metabolic Disorder (eg, Type 1 Diabetes , PKU) false Patient Or Baby's Father Had A Child With Defects Not Listed Above false Recurrent Loss, Or A Stillbirth false Medications (including Suppl ements, Vitamins, Herbs, OTC Drugs), Illicit/Recreational Drugs, Alcohol false If Yes, Agent(s) And Strength/Dosage false Any Other Genetic History false Live With Someone With TB Or Exposed To TB false Patient Or Partner Has History Of Genital Herpes false Rash Or Viral Illness Since Last Menstrual Perio d false History Of STD, Gonorrhea, Chlamydia, HPV, Syphi lis false Other Infection History false History of HIV false History of Hepatitis false Prior GBS-infected child false Hemoglobinopathy Or Carrier false Other Structural Defect false Recent Travel History Outside of Country false Delivery Information Delivery Date Delivery Type Labor Anesthesia Weeks Gestation Incision Type Labor Labor Length Hrs Delivered By Post Complications Tubal Sterilization Discharge Date Comments 1 None Regional-Sp inal 39 false Cortney Thibodeaux MD Maternal Obesity & Prev c/s x1 Discharge Information Feeding Method Contraceptive Method Maternal HG B and HCT Levels Ob Episode Information Episode Created Date Number of Fetuses Patient Bloodtype Patient rh Status Prepregnancy Weight lbs Domestic Partner Domestic Partner Phone Father Name Rating Clerk Status 12/17/19 20 1 CLOSED Fetus Data First Name Last Name Admitted to NICU Weight (g) Sex Living Outcome Pediatric Complications Fetus ID Race Codes Race Delivery Type , Spontane ous 6047 Tima Calculation Initial Tima Date Initial Exam Date Initial Exam Provider Initial Ultrasound Date Last Menstrual Period Date Ultra Sound Weeks Gestation 0 Eighteen To Twenty Week Tima Update Ultra Sound Date Fundal Height At Umbil Quickening Date Ultra Sound Latest Weeks Gestation Final Tima Confirmed By Final Tima Confirmed Date Final Tima Date Ultra Sound Latest Days Gestation 0 0 Menstrual History Last Menstrual Date Menses Monthly On Bcp Conception Prior Menses Frequency Hcg Plus Date Menarche Onset Age Delivery Information Delivery Date Delivery Type Labor Anesthesia Weeks Gestation Incision Type Labor Labor Length Hrs Delivered By Post Complications Tubal Sterilization Discharge Date Comments 8 Discharge Information Feeding Method Contraceptive Method Maternal HG B and HCT Levels Ob Episode Information Episode Created Date Number of Fetuses Patient Bloodtype Patient rh Status Prepregnancy Weight lbs Domestic Partner Domestic Partner Phone Father Name Rating Clerk Status 12/17/19 20 1 CLOSED Fetus Data First Name Last Name Admitted to NICU Weight (g) Sex Living Outcome Pediatric Complications Fetus ID Race Codes Race Delivery Type , Spontane ous 6045 Tima Calculation Initial Tima Date Initial Exam Date Initial Exam Provider Initial Ultrasound Date Last Menstrual Period Date Ultra Sound Weeks Gestation 0 Eighteen To Twenty Week Tima Update Ultra Sound Date Fundal Height At Umbil Quickening Date Ultra Sound Latest Weeks Gestation Final Tima Confirmed By Final Tima Confirmed Date Final Tima Date Ultra Sound Latest Days Gestation 0 0 Menstrual History Last Menstrual Date Menses Monthly On Bcp Conception Prior Menses Frequency Hcg Plus Date Menarche Onset Age Delivery Information Delivery Date Delivery Type Labor Anesthesia Weeks Gestation Incision Type Labor Labor Length Hrs Delivered By Post Complications Tubal Sterilization Discharge Date Comments 5 Discharge Information Feeding Method Contraceptive Method Maternal HG B and HCT Levels Ob Episode Information Episode Created Date Number of Fetuses Patient Bloodtype Patient rh Status Prepregnancy Weight lbs Domestic Partner Domestic Partner Phone Father Name Rating Clerk Status 12/17/19 20 1 CLOSED Fetus Data First Name Last Name Admitted to NICU Weight (g) Sex Living Outcome Pediatric Complications Fetus ID Race Codes Race Delivery Type , Spontane ous 6046 Tima Calculation Initial Tima Date Initial Exam Date Initial Exam Provider Initial Ultrasound Date Last Menstrual Period Date Ultra Sound Weeks Gestation 0 Eighteen To Twenty Week Tima Update Ultra Sound Date Fundal Height At Umbil Quickening Date Ultra Sound Latest Weeks Gestation Final Tima Confirmed By Final Tima Confirmed Date Final Tima Date Ultra Sound Latest Days Gestation 0 0 Menstrual History Last Menstrual Date Menses Monthly On Bcp Conception Prior Menses Frequency Hcg Plus Date Menarche Onset Age Delivery Information Delivery Date Delivery Type Labor Anesthesia Weeks Gestation Incision Type Labor Labor Length Hrs Delivered By Post Complications Tubal Sterilization Discharge Date Comments 7 Discharge Information Feeding Method Contraceptive Method Maternal HG B and HCT Levels
--- OUTSIDE RECORDS SUMMARY | 2025-01-18 14:45 | XMS_ITS | Clinical Summary ---
Author Organization [facility] Address [address] [place] [address] Care Team Providers Care Digital Imaging Specialist Name Role Phone Unavailable Primary Care Provider Unavailabl e Source Comments [facility],non-owned Affiliates and Associated Physician Practices is amultiple site organization consisting of ambulatory clinics and hospital sitesin [place], [place], [place] and [place]. This disclosure is being madepursuant to the Care Everywhere program and may not contain all information available regarding this patient. Last updated 17.[facility] Allergies No known active allergies Medications * [...] Date Smoking Tobacco: Every Day Cigarettes 1 19 Started: 2006 Smokeless Tobacco: Never Alcohol Use Standard Drinks/Week Comments Not Currently 0 (1 standard drink = 0.6 oz pur e alcohol) Comments No Sex and Gender Information Value Date Recorded Sex Assigned at Not on file Legal Sex Female 7:21 AM [employer]ODUCTION METAL [employer] Gender Identity Not on file Sexual Orientation Not on file Last Filed Vital Signs Vital Sign Reading Time Taken Comments Blood Pressure 121/67 12/24/2019 11:37 AM PRODUCTION METAL SPR[employer]ER Pulse 83 12/24/2019 11:37 AM PRODUCTION METAL SPR[employer]ER Temperature 36.4 C (97.5 F) 03/19/2020 9:46 AM PRODUCTION METAL SPR[employer]ER Respiratory Rate - - Oxygen Saturation - - Inhaled Oxygen Concentration - - Weight 117.5 kg (259 lb) 12/24/2019 11:37 AM PRODUCTION METAL SPRAYER Height 167.6 cm (5' 6) 12/24/2019 11:37 AM PRODUCTION METAL SPRAYER Body Mass Index 41.8 12/24/2019 11:37 AM PRODUCTION METAL SPRAYER Plan of Treatment Health Maintenance Due Date Last Done Comments HIV SCREENING 2009 HEPATITIS C SCREENING 05/11/2012 DTAP/TDAP/TD VACCINES (1 - Tdap) 2013 HEPATITIS B VACCINE (1 of 3 - 19+ 3-dose series) 2013 PNEUMOCOCCAL VACCINE (1 of 2 - PCV) 2013 HPV VACCINE (1 - 3-dose SCDM series) 2021 DEPRESSION SCREENING 02/06/2024 COVID-19 VACCINE (1 - 2024-2 6 season) 2024 INFLUENZA VACCINE (#1) 2024 ZOSTER VACCINE (1 [...] age to complete this topic Insurance [facility] Address: [facility] [id number] [place] [address]
--- OUTSIDE RECORDS SUMMARY | 2025-01-18 14:45 | XMS_ITS | Patient Health Record ---
Author Organization [facility] Address [address] [place] [address] Care Team Providers Care Steel Rule Die Maker Name Role Phone Geovanny Ramirez Unavailable [phone] Reason For Referral No Information Medications Medication SIG (Take, Route, Frequency, Duration) Notes Start Date End Date Status ARIPiprazole 10 MG Tablet Oral 02/13/2023 Active Caplyta 42 MG Capsule 1 capsule Oral Once a day; Duration: 30 days *Reorder from Ribbon for eRx and Interaction Alerts* 02/13/2023 Active Abilify 5 MG Tablet Oral 02/13/2023 Active Social History Social History Additional Details Category Social Info Options Details Migrated Social History Migrated Social History Alcohol Intake: None 12/06/2022,Tobacco Years: Current every day smoker 12/09/2019,Smoking Status: 7 01/16/2023 Problems Problem Type SNOMED Code ICD Code Onset Dates Problem Status W/U Status Risk Notes Problem Generalized anxiety disorder (62858847) Generalized anxiety disorder (F41.1) Active confirmed Plan Of Treatment No Information Insurance Providers Payer Name Payer Address Payer Phone Subscriber Number Group Number Insured Name Patient Relationship to Insured Coverage Start Date Coverage End Date [employer] -[employer] [address] [address] [place] [address] [id number] SHERIDAN LOUIE Self - patient is the insured
--- OUTSIDE RECORDS SUMMARY | 2025-01-18 14:45 | XMS_ITS | Patient Health Record ---
Author Organization [facility] Address [address] [place] [address] Phone [phone] Care Team Providers Care Category Manager Name Role Phone Blanca Renae Primary Care Provider [phone] Allergies No Known Allergies Reason For Referral No Information Medications Medication SIG (Take, Route, Frequency, Duration) Notes Start Date End Date Diagnosis (ICD Code) Status Caplyta 42 MG Capsule 1 capsule Orally Once a day; Duration: 30 days Bipolar affective, depress, sev w/ psych (ICD_10 - F31.5) Active Social History Tobacco Use: Social History Observation Description Date Details (start date - stop date) Unknown Sex Observation Social History Observation Description Sex Observation Female Sexual Orientation Social History Observation Description Sexual Orientation Straight or heterose xual Gender Identity Social History Observation Description Gender Identity Female Social History Primary Social History Social Info Question Answer Notes Living Arrangement Living Arrangement: Dependent Bill g Living with: Parent(s) dad Is this a supportive environment? No Employment Status Employment Status: Employed Full [employer] Illicit Substance Usage Illicit Substance Usage: No Alcohol Use Alcohol Use Frequency: Never Tobacco Use: Social Info Question Answer Notes Tobacco Control (Standard) Tobacco use: Uses tobacco i n other forms Additional Findings: Tobacco user e-cigarette Problems Problem Type SNOMED Code ICD Code Dates Problem Status W/U Status Risk Notes Problem Mood disorder (23008813) Mood disorder (F39) Added On: 024 Active confirmed Problem Bipolar affective, depress, sev w/ psych (F31.5) Added On: 024 Active confirmed Plan Of Treatment No Information Insurance Providers Payer Name Payer Address Payer Phone Subscriber Number Group Number Insured Name Patient Relationship to Insured Coverage Start Date Coverage End Date MEDICAID [address] [place] [address] [id number] Julianna Tate Self - patient is the insured 4 MEDICAID [employer] [address] [place] [address] [id number] Julianna Tate Self - patient is the insured 4 4 Medical (General) History Surgical History Surgery Date(Month/Year) section
--- OUTSIDE RECORDS SUMMARY | 2025-01-18 14:45 | XMS_ITS | Clinical Summary ---
Author Organization [facility] Address On license of [facility] [place] [address] Care Team Providers Care Chief Concierge Name Role Phone Renea Brewster APRN Primary Care Provider [phone] Allergies No known active allergies Medications escitalopram (LEXAPRO) 10 MG tablet Take 1.5 tablets (15 mg total) by mouth daily. 5 Active OLANZapine (ZYPREXA) 5 MG tablet Take 1 tablet (5 mg total) by mouth nightly at bedtime. 5 Active albuterol sulfate HFA 108 (90 Base) MCG/ACT inhalerIndication s:Mild intermittent asthma without complication (HHS/HCC) Inhale 2 puffs into the lungs every 4 (four) hours as needed for Wheezing. 6.7 g 11 5 Active vitamin D3 (VITAMIN D) 25 mcg tabletIndications :Vitamin D deficiency Take 1 tablet (25 mcg total) by mouth daily. 30 tablet 11 5 Active tirzepatide-weigh t management (ZEPBOUND) 2.5 mg/0.5 mL injectionIndicati ons:Weight Loss Inject 2.5 mg into the skin every 7 days. Indications: Weight Loss 2 mL 2 5 Active methylPREDNISolon e, JELANI, (MEDROL DOSEPAK) 4 MG tablet Take 1 tablet (4 mg total) by mouth 2 (two) times daily. Follow package directions 1 each 5 Active Active Problems Problem Noted Date Diagnosed Date PCOS (polycystic ovarian syndrome) 11/18/2024 Tobacco dependence due to cigarettes 11/18/2024 Subchorionic hematoma 11/18/2024 care 11/18/2024 Muscle twitching 11/18/2024 Missed period 11/18/2024 Hirsutism 11/18/2024 Exacerbation of asthma 11/18/2024 Encounter for general adult medical examination with abnormal findings 11/18/2024 Cold sore 11/18/2024 delivery delivered 11/18/2024 Bipolar disorder 11/18/2024 Ankle pain 11/18/2024 Urinary incontinence 07/24/2024 Secondary oligomenorrhea 07/24/2024 [place] 12/29/2019 Overview (11/18/2024): O+, Antibody-NEG, Not Immune, Rpr-NR, Hbsag-NR, HIV-NR, HCV RNA-NEG H/h/p: 12.9/37.5/281 HgA1c- 5.3 Medication exposure during first trimester of pr egnancy 12/22/2019 Overview (11/18/2024): Use of Hydroxyzine, lexapro and Abilify/ Pt reports no celexa use. Encounters Date Type Department Care Team Description 12/18/2024 9:20 AM CORK FLOOR INSTALLER - 12/18/2024 10:40 AM CORK FLOOR INSTALLER Emergency [facility] [address] [place] [address] Lazaro Rodriges MD Cough Discharge Disposition: Home or Self Care (Routine Discharge) 12/18/2024 Travel 12/17/2024 Orders Only [address] [place] [address] Renea Brewster APRN 12/14/2024 MyChart Message Enc [address] [place] [address] Renea Brewster APRN Wegovy 12/03/2024 12:20 PM CDT Office Visit [address] [place] [address] Renea Brewster APRN Congestion (Pt states sx started 2 days ago with runny nose, sneezing, head and chest congestion. Pt states she does not think its the flu, but would like a flu shot today. /Pt also states she can't smell or taste) 12/03/2024 Travel 11/18/2024 Results Follow-Up [address] [place] [address] Renea Brewster APRN IRON SAT PANEL (IRON,IBC,%SAT), FERRITIN, PRO-BRAIN NATRIURETIC PEPTIDE, Additional followed-up results: 5 11/18/2024 Orders Only [facility] [address] [place] [address] Renea Brewster APRN 11/18/[address] [place] [address] Renea Brewster APRN Prior Authorization (PA request [place]) 11/17/2024 MyChart Message Enc [address] [place] [address] Renea Brewster APRN Pcos 11/13/2024 9:01 AM CDT - 11/13/2024 11:59 PM CDT Hospital Encounter [facility] [address] [place] [address] Lorene Bui, Renea Phillips APRN Discharge Disposition: Home or Self Care (Routine Discharge) 11/13/2024 Travel 11/11/[address] [place] [address] Renea Brewster APRN Prior Authorization (PA request Zepbound 2.5 mg.) 11/10/2024 2:40 PM CDT Office Visit [address] [place] [address] Renea Brewster APRN Meet and Greet Provider (Patient is here to establish care and discuss some concerns,/ Patient is having trouble with left ear, was seen in office 11/04 for same issues, finished medication given for a middle ear infection./Patient concerns of swelling on the ankles after being active for long periods of time, those symptoms started 6 month ago./Patient is interested in weight loss, was on metformin at one point but made patient dizzy. /) 11/10/2024 Travel 11/04/2024 10:00 AM CDT Office Visit [address] [place] [address] Lucy Alba, Earache (Left ear clogged x2 days ); Cough (Pt states her cough is productive on and off, yellow in color/Pt states when her cough is dry feels like my head is going to pop off//Pt taking tylenol OTC; pt states her cough is going on 2weeks//GNS) 11/04/2024 Travel 10/21/2024 12:00 PM CDT Office Visit [address] [place] [address] Kareen Crowell V, [employer] Dizziness (And Hot flashes; pt states she has been experiencing this x 3 days, pt states they come and go. Pt states she has not experienced anything like thus before besides when she had covid //Pt taking tylenol OTC) 10/21/2024 Travel from Last 3 Months Immunizations Immunization Administration Dates Next Due Flublok (RIV3, Trivalent, 0.5mL) 12/08/2024 Tdap (Adacel) 08/05/2014 Tdap (Generic) 06/26/2020 Social History Tobacco Use Types Packs/Day Years Used Date Smoking Tobacco: Never Smokeless Tobacco: Never Tobacco Cessation:Counseling Given: No Alcohol Use Standard Drinks/Week Comments Not Currently 0 (1 standard drink = 0.6 oz pur e alcohol) PHQ-2 Answer Date Recorded Patient Health Questionnaire-2 Score 2 10/21/2024 Comments No Sex and Gender Information Value Date Recorded Sex Assigned at Female 10/21/2024 12:16 PM CDT Legal Sex Female 6:07 PM CDT Gender Identity Female 10/21/2024 12:16 PM CDT Sexual Orientation Not on file Last Filed Vital Signs Vital Sign Reading Time Taken Comments Blood Pressure 126/75 12/18/2024 10:30 AM CORK FLOOR INSTALLER Pulse 89 12/18/2024 9:23 AM CORK FLOOR INSTALLER Temperature 36.7 C (98.1 F) 12/18/2024 9:23 AM CORK FLOOR INSTALLER Respiratory Rate 20 12/18/2024 9:23 AM CORK FLOOR INSTALLER Oxygen Saturation 96% 12/18/2024 10:35 AM CORK FLOOR INSTALLER Inhaled Oxygen Concentration - - Weight 126.1 kg (278 lb) 12/18/2024 9:23 AM CORK FLOOR INSTALLER Height 167.6 cm (5' 6) 12/18/2024 9:23 AM CORK FLOOR INSTALLER Body Mass Index 44.87 12/18/2024 9:23 AM CORK FLOOR INSTALLER Plan of Treatment Upcoming Encounters Date Type Department Care Team (Late st Contact Info) Description 01/26/2025 1:00 PM CORK FLOOR INSTALLER Office Visit [address] [address] Kareen Crowell V, [address] [address] Health Maintenance Due Date Last Done Comments Annual Physical 1997 Hepatitis C 2012 Hepatitis B Vaccines (1 of 3 - 19+ 3-dose series) 2013 Pneumococcal Vaccine: Pediatrics (0 to 5 Years) and At-Risk Patients (6 to 49 Years) (1 of 2 - PCV) 2013 HPV Vaccines (1 - 3-dose SCD M series) 2021 Cervical Cancer Screening Pa p Smear (Age 30 to 64) Every 3 Years 08/13/2023 08/12/2020 Cervical Cancer Screening Pa p with HPV Testing (Age 30 to 64) Every 5 Years 2024 Cervical Cancer Screening wi th HPV 2024 COVID-19 Vaccine (3 - 2024-2 6 season) 2024 12/16/2021, 01/26/2021 DTaP, Tdap and Td Vaccines ( 3 - Td or Tdap) 06/26/2030 06/26/2020, 08/05/2014 PHQ-2 (Physician [facility]) Completed 10/21/2024 Influenza Adult Completed 12/08/2024 Hepatitis A Vaccines Aged Out No long er eligible based on patient's age to complete this topic Meningococcal B Vaccine Aged Out No l onger eligible based on patient's age to complete this topic Meningococcal Vaccine Aged Out No kev leonora eligible based on patient's age to complete this topic RSV Immunizations Under 20 Months Aged Out No longer eligible b ased on patient's age to complete this topic Procedures Procedure Name Priority Date/Time Associated Diagnosis Comments XR CHEST PA+LAT STAT 12/18/2024 9:59 AM CORK FLOOR INSTALLER INFLUENZA A & B Today 12/03/2024 Upper respiratory tract infection, unspecified type CORONAVIRUS (COVID-19) ANTIGEN Today 12/03/2024 Upper respiratory tract infection, unspecified type TSH W/REFLEX Routine 11/13/2024 9:15 AM CDT Thyroid disorder screening VITAMIN B12 / FOLATE Routine 11/13/2024 9:15 AM CDT B12 deficiency HC VITAMIN D 25 OH Routine 11/13/2024 9: 15 AM CDT Vitamin D deficiency HC COMPREHENSIVE METABOLIC PANEL Routine 11/13/2024 9:15 AM CDT Peripheral edema HC CBC AUTO W/AUTO DIFF Routine 11/13/2024 9:15 AM CDT Restless legs B12 deficiency PRO-BRAIN NATRIURETIC PEPTIDE Routine 11/13/2024 9:15 AM CDT Peripheral edema HC FERRITIN Routine 11/13/2024 9:15 AM CDT Restless legs HC IRON TOTAL Routine 11/13/2024 9:15 AM CDT Restless legs CORONAVIRUS (COVID-19) ANTIGEN Routine 10/21/2024 12:54 PM CDT Acute cough from Last 3 Months Results * XR CHEST PA+LAT (12/18/2024 9:59 AM CORK FLOOR INSTALLER) Anatomical Region Laterality Modality Chest Computed Tomogra phy 12/18/2024 10:0 0 AM CORK FLOOR INSTALLER Impressions 12/18/2024 10:01 AM CORK FLOOR INSTALLER IMPRESSION:===== No acute findings. Referred By: Interpreted By: Jerman Benavides MD, 12/18/2024 10:00 AM Narrative 12/18/2024 10:01 AM CORK FLOOR INSTALLER [address] [place] [address] EXAMINATION: PA AND LATERAL CHEST Exam date/time: 12/18/2024 9:30 AM Reason For Exam: cough, SOB, wheezing Comparison: None Technique: 2 views. Findings: Cardiac silhouette is within normal limits. The lungs are expanded and clear of any consolidations. No effusions are present. ===== Procedure Note Jerman Benavides MD - 12/18/[address] [place] [address] EXAMINATION: PA AND LATERAL CHEST Exam date/time: 12/18/2024 9:30 AM Reason For Exam: cough, SOB, wheezing Comparison: None Technique: 2 views. Findings: Cardiac silhouette is within normal limits. The lungs areexpanded and clear of any consolidations. No effusions are present. ===== IMPRESSION:===== No acute findings. Referred By: Interpreted By: Jerman Benavides MD, 12/18/2024 10:00 AM us Lazaro Rodriges MD GENERAL IMAGING Final Result * CORONAVIRUS (COVID-19) ANTIGEN (12/03/2024) Only the most recent of2 resultswithin the time period is included. CORONAVIRUS ANTIGEN IA NEGATIVE NEGATIVE MG-CAROLINA MALCOLM (201)EDY Internal Control: VALID VALID [facility] (201), [place] NASAL NASAL STRUCTURE / Unknown 12/03/2024 us Renea Brewster APRN MICROBIOLOGY - GENERAL OR DERABLES Final Result Performing Organization Address [facility]/ZIP Co de Phone Number [facility] (201), [address] [address], [place] [phone] * INFLUENZA A & B (12/03/2024) [facility] INFLUENZA A NEGATIVE NEGATIVE [facility] GENET MALCOLM (201), [place] INFLUENZA B NEGATIVE NEGATIVE [facility] GENET MALCOL[place] (201), [place] Internal Control: VALID VALID [facility] (201), [place] NASAL STRUCTURE / Unknown 12/03/2024 us Renea Brewster APRN MICROBIOLOGY - GENERAL OR DERABLES Final Result Performing Organization Address [facility]/ZIP Co de Phone Number [facility] (201), [address] [address], [place] [phone] * VITAMIN B12 / FOLATE (11/13/2024 9:15 AM CDT) VITAMIN B12 S/P/B 327 254 - 1,320 PG/ML 11/13/2024 2:41 PM CDT [facility] FOLATE 8.9 3.1 - 17.5 NG/ML 11/13/2024 2:41 PM CDT [facility] 11/13/2024 9:15 AM CDT us Renea Brewster APRN LABORATORY Final Res ult [facility] [address] [place] [address], [place] [phone] * TSH W/REFLEX (11/13/2024 9:15 AM CDT) TSH 1.310 0.358 - 3.74 uIU/ML 11/13/2024 2:41 PM CDT [facility] Comment: HIGH DOSES OF BIOTIN MAY INTERFERE WITH THIS TEST RESULT. CORRELATION TO CLINICAL HISTORY AND PRESENTATION RECOMMENDED. FREE T4 NOT INDICATED 11/13/2024 9:15 AM CDT [facility] Final Res ult [facility] [address] [place] [address], * PRO-BRAIN NATRIURETIC PEPTIDE (11/13/2024 9:15 AM CDT) PRO-BRAIN NATRIURETIC PEPTIDE 15 0 - 125 PG/ML 11/13/2024 9:52 AM CDT [facility] Comment: CUT POINTS ESTABLISHED BY INTERNATIONAL COLL[employer] ON NT PROBNP (ICON) STUDY (2006). AGE INDEPENDENT: <300 PG/ML HAS A 99% NEGATIVE PREDICTIVE VALUE FOR EXCLUDING ACUTE CHF <50 YEARS: >450 PG/ML IS CONSISTENT WITH ACUTE CHF 50-75 YEARS: >900 PG/ML IS CONSISTENT WITH ACUTE CHF >75 YEARS: >1800 PG/ML IS CONSISTENT WITH ACUTE CHF IN PATIENTS WITH RENAL INSUFFICIENCY (GFR <60), >1200 PG/ML YIELDS A DIAGNOSTIC SENSITIVITY AND SPECIFICITY OF 89% AND 72% FOR ACUTE CHF. 11/13/2024 9:[address] [facility] SALES ENGAGEMENT MANAGER LABORATORY Final Res ult [facility] [address] [place] [address] [place] [address], [place] * IRON SAT PANEL (IRON,IBC,%SAT) (11/13/2024 9:15 AM CDT) IRON 145 50.0 - 170.0 MCG/DL 11/13/2024 2:20 PM CDT [facility] IRON BINDING CAPACITY 365 250 - 450 MCG/DL 11/13/2024 2:20 PM CDT [facility] IRON SATURATION 40 20 - 55 % 2:20 PM CDT [facility] 11/13/2024 9:15 AM CDT us Renea Brewster SALES ENGAGEMENT MANAGER LABORATORY Final Res ult [facility] [address] [place] [address], * COMPREHENSIVE METABOLIC PANEL (11/13/2024 9:15 AM CDT) GLUCOSE 89 70 - 99 MG/DL 11/13/2024 9:52 AM CDT [facility] BUN 11 7 - 18 MG/DL 11/13/2024 9:52 AM CDT [facility] CREATININE S/P/B 0.54 0.50 - 1.20 MG/DL 11/13/2024 9:52 AM CDT [facility] SODIUM S/P/B 141 136 - 145 MMOL/L 11/13/2024 9:52 AM CDT [facility] POTASSIUM S/P/B 3.8 3.5 - 5.1 MMOL/L 11/13/2024 9:52 AM CDT [facility] CHLORIDE S/P/B 104 100 - 108 MMOL/L 11/13/2024 9:52 AM CDT [facility] CO2 25.5 21.0 - 32.0 MMOL/L 11/13/2024 9:52 AM CDT [facility] CALCIUM S/P/B 9.0 8.5 - 10.1 MG/DL 11/13/2024 9:52 AM CDT [facility] BILIRUBIN TOTAL S/P/B 0.4 0.2 - 1.2 MG/DL 11/13/2024 9:52 AM T [facility] Comment: THIS ASSAY IS NOT RECOMMENDED FOR PATIENTS UNDERGOING TREATMENT WITH ELTROMBOPAG DUE TO THE POTENTIAL FOR FALSELY ELEVATED RESULTS. TOTAL PROTEIN S/P/B 6.7 6.4 - 8.2 G/DL 11/13/2024 9:52 AM CDT [facility] ALBUMIN S/P/B 3.5 3.4 - 5.0 G/DL 11/13/2024 9:52 AM CDT [facility] AST 33 15 - 37 U/L 11/13/2024 9:52 AM CDT [facility] ALT 54 14 - 55 U/L 11/13/2024 9:52 AM CDT [facility] ALKALINE PHOSPHATASE S/P/B 83 50 - 136 U/L 11/13/2024 9:52 AM T [facility] ANION GAP 11.5 5.0 - 15.0 MMOL/L 11/13/2024 9:52 AM CDT [facility] BUN CREATININE RATIO 20.4 6 - 26 11/13/2024 9:52 AM T [facility] A/G RATIO 1.1 1.0 - 2.5 RATIO 11/13/2024 9:52 AM T [facility] GFR ESTIMATE >90 >90 ML/MIN/1.7 3 M2 11/13/2024 9:52 AM T [facility] Comment: NOTE: eGFR is not calculated for patients <18 years of age. This is an estimated GFR calculation using the new CKD EPI creatinine equation without race and so does not require a correction factor for race. This estimated GFR should not be used for calculating drug doses. 11/13/2024 9:15 AM CDT us Renea Brewster SALES ENGAGEMENT MANAGER LABORATORY Final Res ult [facility] [address] [place] [address] [place] [address], * CBC W/DIFF AUTOMATED (11/13/2024 9:15 AM CDT) [facility] WBC 6.08 4.50 - 11.00 x10'3/uL 11/13/2024 9:22 AM CDT [facility] RBC 4.31 4.00 - 5.20 x10'6/uL 11/13/2024 9:22 AM CDT [facility] HGB 13.5 12.0 - 16.0 G/DL 11/13/2024 9:22 AM CDT [facility] HCT 38.5 38.0 - 48.0 % 11/13/2024 9:22 AM CDT [facility] MCV 89.3 80.0 - 100.0 FL 11/13/2024 9:22 AM CDT [facility] MCH 31.3 26.0 - 34.0 PG 11/13/2024 9:22 AM CDT [facility] MCHC 35.1 31.0 - 37.0 G/DL 11/13/2024 9:22 AM CDT [facility] RDW 11.9 11.6 - 14.8 % 11/13/2024 9:22 AM CDT [facility] PLT 274 130 - 400 x10'3/uL 11/13/2024 9:22 AM CDT [facility] MPV 9.4 7.0 - 12.0 FL 11/13/2024 9:22 AM CDT [facility] CBC COMMENT AUTOMATED RBC MORPHOLOGY AND PLATELET EVALUATION NORMAL 11/13/2024 9:22 AM CDT [facility] NEUTROPHILS % 54.0 40.0 - 74.0 % 11/13/2024 9:22 AM CDT [facility] LYMPHOCYTES % 32.6 14.0 - 46.0 % 11/13/2024 9:22 AM CDT [facility] MONOCYTES % 7.2 4.0 - 13.0 % 11/13/2024 9:22 AM CDT [facility] EOSINOPHILS 4.6 0.0 - 7.0 % 11/13/2024 9:22 AM CDT [facility] BASOPHILS 1.3 0.0 - 3.0 % 11/13/2024 9:22 AM CDT [facility] IMMATURE GRANS % 0.3 0.0 - 0.43 % 11/13/2024 9:22 AM CDT [facility] NRBC % 0.0 % 11/13/2024 9:22 AM CDT [facility] ABS. NEUTROPHILS TOTAL 3.28 1.69 - 7.81 x10'3/uL 11/13/2024 9:22 AM CDT [facility] ABS. LYMPHOCYTES 1.98 0.21 - 5.42 x10'3/uL 11/13/2024 9:22 AM CDT [facility] ABS. MONOCYTES 0.44 0.04 - 1.37 x10'3/uL 11/13/2024 9:22 AM CDT [facility] ABS. EOSINOPHILS 0.28 0.00 - 0.68 x10'3/uL 11/13/2024 9:22 AM CDT [facility] ABS. BASOPHILS 0.08 0.00 - 0.08 x10'3/uL 11/13/2024 9:22 AM CDT [facility] ABS. IMMATURE GRANULOCYTES 0.02 0.00 - 0.06 x10'3/uL 11/13/2024 9:22 AM CDT [facility] ABS. NUCLEATED RBC'S 0.00 0.00 - 0.01 x10'3/uL 11/13/2024 9:22 AM CDT [facility] 11/13/2024 9:15 AM CDT us Renea Brewster SALES ENGAGEMENT MANAGER LABORATORY Final Res ult [facility] [address] [facility] [address], * (ABNORMAL) VITAMIN D, 25 OH (11/13/2024 9:15 AM CDT) VITAMIN D 25 HYDROXY S/P/B 18(L) 30 - 100 NG/ML 11/13/2024 2:25 PM CDT [facility] Comment: INTERPRETATION DEFICIENT <20 INSUFFICIENT 20-29 SUFFICIENT 30-100 11/13/2024 9:15 AM CDT [facility] SALES ENGAGEMENT MANAGER LABORATORY Final Res ult [facility] [address] [place] [address], [place] [phone] * FERRITIN (11/13/2024 9:15 AM CDT) Pathologist [facility] FERRITIN 115.2 8.0 - 388.0 NG/ML 11/13/2024 2:20 PM CDT [facility] 11/13/2024 9:15 AM CDT [facility] SALES ENGAGEMENT MANAGER LABORATORY Final Res ult [facility] [address] [place] [address], [place] [phone] from Last [address] [place] [address] [place] [employer] Care Teams Chief Concierge Relationship Specialty Start Date End Date Renea Brewtser APRN PCP - General NURSE PRACTITIONER 11/18/24
--- OUTSIDE RECORDS SUMMARY | 2025-01-18 14:46 | XMS_ITS | Data Portability ---
Author Organization [facility], [id number] Address [address] [place] [address] Assessment No assessment recorded. Plan of Treatment Reminders Order Date Submit Date Provider Last Modified By Organization Details Last Modified Time Details Appointments ANNUAL- EST 15 2025 10:00A M CANDACE OBRIEN DO Not available Not available Not available Lab CBC w/ diff 2024 025 [facility] (Lab), [address] [place], [address], 08/04/2024 08:55:29 CMP, serum or plasma 2024 025 [facility] (Lab), [address] [place], [address], 08/04/2024 08:39:21 TSH, serum, reflex free T4 2024 025 [facility] (Lab), [address] [place], [address], 08/04/2024 13:56:46 HbA1c (hemogl obin A1c), blood 2024 025 [facility] (Lab), [address] [place], [address], 08/04/2024 12:27:45 vitamin B12, serum 2024 025 [facility] (Lab), [address] [place], [address], 09/30/2024 17:02:43 vitamin D, 25-hydr oxy, total, serum 2024 025 [facility] (Lab), [address] [place], [address], 08/04/2024 12:25:36 lipid panel, serum 2024 025 [facility] (Lab), [address] [place], [address], 08/04/2024 13:58:43 pap, LB 2024 025 [facility] ([facility]), [address] , [facility] [address], [place], [address], 07/29/2024 12:58:02 HPV DNA, high-ri sk - Reflex to genotyp ing if HPV Detecte d 2024 025 [facility]), [address] , [facility] [address], [place], [address], 07/29/2024 12:58:03 urinaly sis, complet e 2024 025 [facility] (Lab), [address] [place], [address], 08/04/2024 12:00:03 Referral pelvic floor therapy referra l 2024 025 [facility], [address] [place], [address], 07/25/2024 13:00:58 Procedures None recorde d. Surgeries None recorde d. Imaging US, pelvis, transab dominal + transva ginal [id number] [place] [address] (Radiology), [address] [place], [address], 11/10/2024 12:56:39 Medication Orders None recorde d. Patient TargetsNo targets recorded. Patient Instructions Encounter Date Encounter Id Patient Instructions Last Modified By Organization Details Last Modified Time 07/24/2024 [id number] A healthy lifest yle: care instructions Not available 07/24/2024 23:03:12 Pap test: care instructions Not available 07/24/2024 23:03:12 skin cancer prevention: care instructions Not available 07/24/2024 23:03:12 Well Visit, Ages 18 to 65: Care Instructions Not available 07/24/2024 23:03:12 [facility] about [email or web address] Not available 07/24/2024 23:03:12 learning about stress [email or web address] Not available 07/24/2024 23:03:12 Cervical Cancer Screening: Women should begin having a Pap smear at age 21. Women aged 21-29 should be screened every 3 years. Women aged 30-65 should be screened every 3-5 years. Your doctor may stop performing pap smear screenings if you have had a hysterectomy or are age 65 or above, if you meet certain criteria: Three consecutive negative cytology results or two consecutive negative HPV results within the previous 10 years with the most recent test within the past 5 years. No history of a high-grade precancerous lesions (cervical intraepithelial neoplasia grade 2 or grade 3 or cervical cancer within the past 20 years). Screening for Sexually Transmitted Diseases: Chlamydia and Gonorrhea are two of the most common sexually transmitted diseases with 75% of Chlamydial and 68% of Gonococcal infections showing no symptoms. Women should be screened for Chlamydia and Gonorrhea that are age 25 and under or women over age 25 at increased or special risk. Women should be screened for HIV aged 13-64 or at increased risk. 84% of cases are attributed to heterosexual sex. Women at increased or special risk or requesting STI screening should be screened for Hepatitis B and C, Syphilis, Herpes, Trichomonas. Vaccination Recommendations for Ages 27-45: Screenings for vaccination status should be based on the CDC Adult Vaccine Schedule. Recommendations include seasonal flu vaccine, Hepatitis A&B, and the Varicella series for those who are unvaccinated and have no history of infection. Completion of the HPV vaccine can be considered if desired and you have not been previously vaccinated. All eligible women should receive full vaccination against COVID-19. If you are actively attempting , you should not receive live vaccines. Preconception Counseling: If you are of reproductive age who are actively planning or not preventing should have a visit to discuss their reproductive plan. The goals of this visit are to identify any risks or barriers to healthy outcomes and to receive education on possible options for health management to reduce any risks prior to becoming . Your provider will ask you about your health history in order to identify possible chronic medical conditions that should be optimized prior to for better outcomes and will make referrals if needed. Your provider will also review the medications that you are currently taking that may be harmful in and talk with you about any that may need to be stopped. Your provider will review your vaccination status with you to identify if there are any that may be recommended as well as discuss substance abuse and possible environmental exposures. Family history will be obtained to identify any potential inheritable conditions and refer you to a genetic counselor if necessary. Your provider will ask you to start taking a folic acid supplementation of 400-800mcg daily to prevent neural tube defects if there is a chance you may become . Contraception Information: If you are considering or participating in a heterosexual relationship involving vaginal intercourse it is recommended that you have a gynecologic visit to discuss contraception if you do not wish to become now. Your visit will include a discussion about which contraception option is best for you based on your medical history, ease of use and personal preference. Once a method is identified as the best option, your healthcare provider will provide education on how to most effectively use the method chosen, when to start, possible side effects and efficacy at preventing . If you wish to discontinue or change to another method of contraception, please discuss possible options with your healthcare provider. Hereditary Cancer Screening: Your provider will review your family history of any cancers in your first- and second-degree relatives if you know that information. A referral for genetic counseling may be made if your family history includes a diagnosis of cancer at a young age, multiple cancers of the same type in different family members of the same side, or multiple primary cancers in one individual, or multiple family members on the same side affected by a combination of breast, ovarian, endometrial, and/or gastrointestinal cancers. Genetic Testing for Inheritable Disorders (Carrier Screening): The [employer] recommends that all women, and preferably all women with a desire to become , consider having a blood test to assess their risk of carrying a baby with a significant inherited disorder, such as cystic fibrosis. This test only needs to be performed once in a lifetime (assuming there are no improvements in testing in the future). A positive test indicates that there is a risk for the disease, however, a baby can only be affected with the disease if both parents carry the same gene. Therefore, the father of the baby would also need to be tested. Not available 07/24/2024 22:54:20 During the visit , I discussed the importance of routine gynecologic examinations and screenings, including Pap smear and HPV testing, with the patient. We also talked about the potential benefits of pelvic floor physical therapy for her urinary incontinence. I explained that if her urinary symptoms persist despite therapy, further evaluation may be necessary. May consider medications if suspect OAB. Additionally, I recommended routine health maintenance labs to screen for diabetes and other conditions, given her urinary symptoms and history of gestational diabetes. - Schedule and attend pelvic floor physical therapy sessions to improve urinary symptoms. - Follow up with the clinic if urinary symptoms persist or worsen. - Complete routine health maintenance labs as ordered. - Ensure patient portal is set up to receive lab results. Not available 07/24/2024 23:02:42 Reason for Referral Pelvic Floor Therapy Referra l for Urinary incontinence Referring Physician: Candace Obrien, [employer]KER MACHINE, Encounter Date: 07/24/2024 Results Created Date Observation Date Name Description Value Unit Range Abnormal Flag Note LastModifiedBy Organization Detail LastModifiedTime 07/25/19 25 07/29/2024 PAP TEST THIN PREP Pap test thin prep Negati ve for Intrae pithel ial Lesion or Malign josefa normal ACCES JV #: [id number] Sourc e: Cervi yolanda/E ndoce rvica l LMP: Date Taken : 07/24 Speci men Type: ThinP rep Vial Date Repor do: 2024 Clini yolanda Data: Hormo higinio: IUD Last Pap: wnl (06/24 20) Cytot ech: Ayana ey Espinosa, CT( CP) Date Repor do: 2024 Revie wed By: Sheyla Dow, CT( CP) Speci men Adequ acy: Satis facto ry for evalu ation Endoc ervic al/tr ansfo rmati on zone compo nent prese nt Gener al Categ oriza tion: NEGAT YAZAN FOR INTRA EPITH ELIAL LESIO N OR MALIG SHEYLA The follo wing tests have been order ed as reque sted and a separ ate repor t will be issue d: HPV High Risk Scree n (TMA) This speci men has been danielle zed by the ThinP rep Imagi ng Syste m, an inter activ e compu ter syste m which eddi ts the lab in the scree shi of ThinP rep Pap Test slide s. Follo wing imagi ng, the slide was revie wed by a Cytot echno logis t and/o r Patho logis t. Cervi yolanda cytol ogy is a scree shi test prima rily for squam ous cance rs and precu rsors and has assoc iated false -nega tive and false -posi tive resul ts. New techn ologi es such as liqui d-bas ed prepa ratio ns may decre ase but will not elimi jessica all false -nega tive resul ts. Regul ar sampl ing and follo w-up of unexp storm d clini yolanda signs and sympt oms are recom shakila d to minim ize false negat yazan resul ts. End of t Techn ical servi matty provi ded by [facility] [employer], d/[facility], [address] [place] [address] Paula farooq MD, Labor atory Direc tor. Case revie wed and diagn osis rende red at [facility] [employer], d/b/a [facility], [address] [place] [address] Paula farooq MD, Labor atory Direc tor. CONFI DENTI AL Not Available [facility] ([facility]) [address], [place], [address], 07/29/2024 12:58:02 07/25/19 25 07/26/2024 HPV HIGH RISK HARITHA N (TMA) HPV high risk NOT DETECT ED normal The human papil lomav irus (HPV) High Risk Mitche n is an FDA-a pprov ed in-vi tro ampli fied nucle ic acid test for the quali tativ e detec tion of E6/E7 viral mRNA. Resul ts shoprosper d be corre lated with patie nt prese ntati on, histo ry, cervi yolanda cytol ogy and other clini yolanda and labor atory findi ngs. See https ://[employer]/s ites/ defoleg lt/fi les/2 018-0 3/AW- 92429 _002_ 01.pd f for furth er infor brenda n. Test perfo rmed by [facility] d/b/a [facility], [address], [place] [address] , Amparo Gibbs ra, DO, Labor atory [facility]# [id number] Not Available [facility] ([facility]) [address], [place], [address], 07/29/2024 12:58:03 Result Notes None recorded. 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 Procedures Surgical History Date Name Laterality Status Provider Name and Address Organization Details Recorded Time [facility] Annual Well-Woman Visit age 18-39 [place] [address] [place] [address] completed CANDACE OBRIEN DO [address], [place], [address], [facility] 07/24/2024 14:42:18 Date of Last Pap Smear completed Gwendolyn Coats [facility] 07/24/2024 14:47:45 Caesarean Section completed Gwendolyn Coats [facility] 07/24/2024 14:57:52 Imaging Results None recorded. Procedure Notes None recorded. Medical Equipment None Reported. Allergies No known drug allergies Medications Name Sig Start Date Stop Date Status Note LastModified by Organization Details LastModified Time fluoxetine 20 mg tablet Take 1 tablet every day by oral route. active Not Available Not Available No t Available aripiprazole 10 mg disintegrati ng tablet Place 1 tablet every day by translingua l route. active Not Available Not Available No t Available Kyleena 17.5 mcg/24 hr (up to 5 years) 19.5 mg intrauterine device Take by intrauterin e route. 2020 active Not Available Not Available Not Avai lable Vitals Date Recorded Body height Body mass index (BMI) Body weight Systolic And Diastolic Provider Name and Address Organization Details Last Updated DateTime 07/24/2024 168.91 cm 43.7 kg/m2 287636.9 g 126/78 mm[Hg] Gwendolyn Coats [facility] 07/24/2024 14:53:11 Social History Question Answer Notes LastModified by Organizat ion Details LastModified Time Tobacco Smoking Status Current Some Day Smoker Gwendolyn Coats [facility] 07/24/2024 14:47:45 Do You Have An Advance Directive? No [email or web address] Information not available 07/24/2024 If You Are , What Was Your Level Of Alcohol Consumption Prior To ? None [email or web address] Information not available 07/24/2024 What Is Your Level Of Caffeine Consumption? Moderate Information not available 07/24/2024 What Type Of Diet Are You Following? REGULAR [email or web address] Information not available 07/24/2024 What Is Your Relationship Status? Single [email or web address] Information not available 07/24/2024 At What Age Did You Start Smoking Tobacco? 14 Information not available 07/24/2024 How Much Tobacco Do You Smoke? No [email or web address] Information not available 07/24/2024 Sex: Unknown Functional Status Question Answer Note LastModified by Organizat ion Details LastModified Time Do you use any illicit or recreational drugs? No Information not available 07/24/2024 Do you or have you ever used any other forms of tobacco or nicotine? Yes [email or web address] Information not available 07/24/2024 What is your level of alcohol consumption? None [email or web address] Information not available 07/24/2024 Do you or have you ever used smokeless tobacco? Never used smokeless tobacco [email or web address] Information not available 07/24/2024 Are you currently employed? Yes [email or web address] Information not available 07/24/2024 Do you or have you ever used e-cigarettes or vape? Current user of electronic cigarettes [email or web address] Information not available 07/24/2024 Mental Status None recorded. Family History Relationship Description Onset Age of this Age Resolved Age Notes LastModified by Organization Details LastModified Time Mother Anxiety disorder Not available 2024 14:47:45 Mother Depressive disorder [email or web address] Not available 2024 14:47:45 Mother Mental disorder [email or web address] Not available 2024 14:47:45 Mother Irritable bowel syndrome Not available 2024 14:57:42 Brother Anxiety disorder [email or web address] Not available 2024 14:47:45 Brother Depressive disorder [email or web address] Not available 2024 14:47:45 Father Anxiety disorder [email or web address] Not available 2024 14:47:45 Father Depressive disorder [email or web address] Not available 2024 14:47:45 Father Mental disorder [email or web address] Not available 2024 14:47:45 Medical History No medical history recorded. Gynecological History Statement/Question Response History of PCOS Y Flow Moderate History of Fibroids N Date of LMP 04/08/2024 History of Infertility Y History of Vulvar Dysplasia N History of Cervical Dysplasia N Current Control Method: IUD Duration of Flow (days) 7 Age at Menarche 12 History of Recurrent Ovarian Cysts N Cologuard Testing N Age at first intercourse 14 HPV Vaccine Completed History of Endometriosis N Sexually Active? Y History of Dysmenorrhea N Menses Monthly N Date of Last Pap Smear 06/25/2020 Sexual Problems? Y History of Sexually Transmitted Infectio n N Obstetrics History GPAL:G 4 P 2 0 2 2 Type Value Full Term 2 Spontaneous 2 Living 2 Total 4 Immunizations Vaccine Type Date Status Note Provider Nam e and Address Organization Details Recorded Time COVID-19, mRNA, LNP-S, PF, 30 mcg/0.3 mL dose 01/26/2021 [facility] 07/24/2024 14:47:21 COVID-19, mRNA, LNP-S, PF, 30 mcg/0.3 mL dose, pito-sucrose 12/16/2021 completed Gwendolyn richards, [facility] 07/24/2024 14:47:21 Tdap 06/26/2020 completed Gwendolyn richards [facility] 07/24/2024 14:47:21 Past Encounters Encounter ID Performer Location Encounter Start Date Encounter Closed Date Diagnosis/Indication Diagnosis SNOMED-CT Code Diagnosis ICD10 Code Diagnosis IMO Codes Diagnosis Note [id number] CANDACE OBRIEN DO [id number] [address] [facility] [address] [place] [address] 07/24/2024 14:13:39 07/24/2024 15:27:17 Gynecologic examination 29805567 Z01.419 Screening for malignant neoplasm of cervix 943488387 Z12.4 Depression screening 171 174213 Z13.31 Human jennifer lloma virus screening 717778096 Z11.51 Urinary incontinence 165 727822 R32 M62.89 [id number] - Recommend pelvic floor physical therapy to improve muscle control and alleviate symptoms.- Order urinalysis to rule out infection as a cause of symptoms. General ex amination of patient 290677358 Z00.00 Secondary oligomenorrhea 57006833 N91.4 94554 - Monitor menstrual irregulari ties and consider ultrasound to assess endometria l thickness in spite of IUD given that she was previously having menses and now has not for several months Intrauteri ne contraceptive device in situ 931507598 Z30.431 692145 - Due to be replaced next year Health Concerns Section Related Observation LastModified by Organization Detai ls LastModified Time None Recorded Concern Status LastModified by Organization Details LastModified Time None Recorded Advance Directives Directive N: Payers Insurance Date Sequence Insurance Name Policy Number Policy Lujan Covered Member ID Lujan Member ID Guarantor Name 07/28/2024 1 [employer] (PPO) [id number] Julianna Hobson Bebeto [id number] Julianna Tate Notes Date Note Type Note Provider Name and Address Organization Details Recorded Time 5 text/html [facility] Annual Well-Women Visit Age 30-39Reported by PatientPreventive Health ScreeningsFor current medical history, patient reportsreviewed and documented. For relevant family history, patient reportsno family history of breast cancer,no family history of ovarian cancer,no family history of uterine cancer,no family history of colon cancer, andno family history of blood clots/dvt. 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 For mammography, patient reportsn/a. For bone density study, patient reportsn/a. For colorectal screening, patient reportsn/a. For diabetes screening, patient reportsdue. For lipid screening, patient reportsdue. For thyroid screening, patient reportsdue.Health Risk AnalysisFor medical risk factors, patient reportsno historical risk factors.ContraceptionF or contraceptive method, patient reports__andcontracept yazan method: levonorgestrel containing iud 5-yr.Sexually ActiveFor sexually active, patient reportsyes: __.STI ScreenFor sti screen, patient reportsdeclines sti testing.Menstrual History/SymptomsFor menstrual cycle, patient reportsfrequency of menses: irregular.Genito-urina ry SymptomsFor urinary symptoms, patient reportsstress incontinence. The patient is a 29-year-old female presenting for an annual gynecologic examination and routine screenings. She has no family history of breast, cervical, ovarian, or colon cancer. Her last Pap smear was in 2020, and she is due for one today, along with HPV testing. The patient is sexually active and uses Kyleena for control, supplemented with condom use. The Kyleena IUD was placed in August 2020. She reports not having a menses for several months, cannot remember LMP. Previously had menses every other month. Has history of PCOS. She has experienced irregular cycles in the past. The patient reports urinary incontinence, which began approximately four to five months ago, with no significant changes in her health during that time. She has not been diagnosed with diabetes, and her last blood work was conducted a couple of years ago. She has had two pregnancies, with the largest baby weighing 7 pounds and 1 ounce. Both sections. No bulge symptoms. Symptoms consistent with STACIE. CANDACE GONZALEZ SUSANNAH DO [address], [place], [address], [facility] 07/24/2024 23:03:18 OBGyn Episode Ob Episode Information Episode Created Date Number of Fetuses Patient Bloodtype Patient rh Status Prepregnancy Weight lbs Domestic Partner Domestic Partner Phone Father Name Freelance Data Entry Status 07/25/19 25 1 CLOSED Fetus Data First Name Last Name Admitted to NICU Weight (g) Sex Living Outcome Pediatric Complications Fetus ID Race Codes Race Delivery Type 3203.26 6704 M Full Term [id number] Repeat Tima Calculation Initial Tima Date Initial Exam [...] Complications Tubal Sterilization Discharge Date Comments 1 39 Discharge Information Feeding Method Contraceptive Method Maternal HG B and HCT Levels Ob Episode Information Episode Created Date Number of Fetuses Patient Bloodtype Patient rh Status Prepregnancy Weight lbs Domestic Partner Domestic Partner Phone Father Name Freelance Data Entry Status 07/25/19 25 1 CLOSED Fetus Data First Name Last Name Admitted to NICU Weight (g) Sex Living Outcome Pediatric Complications Fetus ID Race Codes Race Delivery Type 3033.16 9704 M Full Term [id number] Primary Tima Calculation Initial Tima Date Initial [...] Complications Tubal Sterilization Discharge Date Comments 5 39 Discharge Information Feeding Method Contraceptive Method Maternal HG B and HCT Levels
[2025-01-18 15:04] LABS: Hematocrit 41.4 % (37.0-47.0); Hemoglobin 14.5 g/dL (12.0-15.0); Immature Granulocyte Percent A 0.3 % (0-0.5); Lymphocytes Absolute Auto 3.09 K/mm3 (0.9-3.2); Mean Corpuscular HGB Conc 35.0 g/dl (32-36); Mean Corpuscular Hemoglobin 31.2 pg (26-34); Mean Corpuscular Volume 89.0 fl (80-100); Nucleated Red Blood Cells Absolute Auto 0.000 K/mm3 (0.0-0.012); Nucleated Red Blood Cells Perc 0.0 % (0.0-0.2); Platelet Count Result 289 k/mm3 (150-375); Red Blood Count 4.65 M/mm3 (4.2-5.4); White Blood Count 8.6 K/mm3 (4.5-10.0)
--- OUTSIDE RECORDS SUMMARY | 2025-01-18 15:18 | XMS_ITS | Clinical Summary ---
Author Organization [facility] Address [address] [place] [address] Care Team Providers Care Emergency Doctor Name Role Phone Unavailable Primary Care Provider Unavailabl e Source Comments [facility],non-owned Affiliates and Associated Physician Practices is amultiple site organization consisting of ambulatory clinics and hospital sitesin [place], [place], [place] and [place]. This disclosure is being madepursuant to the Care Everywhere program and may not contain all information available regarding this patient. 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 Gender Identity Not on file Sexual Orientation Not on file Last Filed Vital Signs Vital Sign Reading Time Taken Comments Blood Pressure 121/67 12/24/2019 11:37 AM RETAIL PRICING COORDINATOR Pulse 83 12/24/2019 11:37 AM RETAIL PRICING COORDINATOR Temperature 36.4 C (97.5 F) 03/19/2020 9:46 AM RETAIL PRICING COORDINATOR Respiratory Rate - - Oxygen Saturation - - Inhaled Oxygen Concentration - - Weight 117.5 kg (259 lb) 12/24/2019 11:37 AM RETAIL PRICING COORDINATOR Height 167.6 cm (5' 6) 12/24/2019 11:37 AM RETAIL PRICING COORDINATOR Body Mass Index 41.8 12/24/2019 11:37 AM RETAIL PRICING COORDINATOR Plan of Treatment Health Maintenance Due Date [...] to complete this topic Insurance [facility] Address: [facility] [id number] [place] [address]
[2025-01-18] MEDS: SODIUM CHLORIDE 0.9% IV 1,000 ML 999 ML IV CONT (15:25)
[2025-01-18 15:28] LABS: BEDSIDEPREGUCG Negative (Negative)
[2025-01-18 15:35] LABS: Add Urine Microscopic? YES; Appearance Urine Cloudy (Clear); Glucose Urine UA Negative (Negative); Leukocyte Esterase Ur 1+ LEU/UL (Negative); Nitrate Urine Negative (Negative); Non Pathogenic Casts 0-2; Specific Grav Ur 1.017 (1.001-1.035)
[2025-01-18 15:52] LABS: Alanine Aminotransferase 52 U/L (6-35); Albumin Level 4.5 g/dL (3.5-5.1); Alkaline Phosphatase 64 U/L (38-126); Anion Gap 10 mmol/L (4-12); Aspartate Amino Transferase 41 U/L (14-36); Bilirubin,Total 0.4 mg/dL (0.2-1.3); Blood Urea Nitrogen 9 mg/dL (7-17); Calcium 9.7 mg/dL (8.4-10.2); Carbon Dioxide 21 mmol/L (22-30); Chloride 106 mmol/L (98-107); Estimated CRCL calculation 163 ml/min; Estimated Glomerular Filt Rate > 60; Glucose 84 mg/dL (65-110); Potassium 3.6 mmol/L (3.4-5.0); Sodium 137 mmol/L (137-145); Total Protein 7.5 g/dL (6.3-8.2)
[2025-01-18] MEDS: cefTRIAXone 2 GM in SODIUM CHLORIDE 0.9% IV 100 ML 200 ML IVPB (16:29)
--- NOTE | 2025-01-18 16:31 | ED.FEMALEGU ---
HPI - Female Genitourinary General Chief complaint: Urogenital-Female Stated complaint: blood in the urine Time Seen by Provider: 01/18/25 14:56 History of Present Illness HPI Narrative: Patient has noticed some blood in her urine, also some slight flank pain. Has had kidney stones in the past. No significant nausea vomiting. Denies Significant pain. Related Data Allergies Allergy/AdvReac Type Severity Reaction Status Date / Time No Known Allergies Allergy Verified 01/18/25 14:44 Review of Systems Review of Systems: All systems reviewed & are unremarkable except as noted in HPI and below PMFSH Past Medical History Medical History (Updated 01/18/25 @ 16:29 by Brenda Vega MD) Hirsutism PCOS (polycystic ovarian syndrome) Family History Family History Mother Asthma Father Family history of arthritis Social History Social History Social History: Single Smoking packs per day: 10 Smoking cigarettes per day: 200.0 Years smoked: 12 Smoking pack-years: 120.00 Smoking status: Current every day smoker Tobacco type: cigarettes Second hand tobacco smoke exposure: Yes Alcohol intake: current Alcohol use details: occasionally Substance use: current Substance use type: does not use Living arrangements: with family Occupation/Education: occupation Gender identity (if verbalized by the patient): Female Sexual Orientation (if Verbalized by the Patient): Straight or Heterosexual Spiritual care concerns: No Exam Narrative: EXAMINATION OF ORGAN SYSTEMS/BODY AREAS: Constitutional: Vital signs per nursing GENERAL:No acute distress, non-toxic appearing. HEAD: Normal with no signs of head trauma. EYES: EOMI, conjunctiva normal ENT: Hearing grossly intact LUNGS: Nonlabored breathing. HEART: Regular rate and rhythm ABD: Soft, nontender to palpation EXT: Normal range of motion SKIN: No rashes or lesions. NEURO: Alert. No gross focal sensory or strength deficits. PSYCH: Normal affect Course Vital Signs Vital signs: Vital Signs Temperature 97.6 F 01/18/25 14:44 Pulse Rate 98 01/18/25 14:44 Respiratory Rate 18 01/18/25 14:44 Blood Pressure 140/99 H 01/18/25 14:44 Pulse Oximetry 100 01/18/25 14:44 Oxygen Delivery Room Air 01/18/25 14:44 Temperature 97.6 F 01/18/25 14:44 Pulse Rate 98 01/18/25 14:44 Respiratory Rate 18 01/18/25 14:44 Blood Pressure 140/99 H 01/18/25 14:44 Pulse Oximetry 100 01/18/25 14:44 Oxygen Delivery Room Air 01/18/25 14:44 MDM MDM Narrative Medical decision making narrative: 29 year-old patient presenting with suprapubic pain and urinary symptoms consistent with UTI. Urinalysis is obtained and positive for signs of infection. Urine culture sent. test is negative. CT does not show any acute abnormality though it does show malpositioned IUD. I discussed this with her OBGYN group, recommended follow-up them in the clinic to recheck and likely reposition the IUD. Patient started on antibiotics, and strongly advised to return for any increasing or worsening pain, fevers or vomiting. They expressed understanding of instructions and is discharged in stable condition. Differential Diagnosis Differential Diagnosis: Pyelonephritis, kidney stone, etc. Lab Data 01/18/25 14:59 01/18/25 14:59 Labs: Lab Results 01/18/25 01/18/25 01/18/25 Range/Units 14:59 15:23 15:26 WBC 8.6 (4.5-10.0) K/mm3 RBC 4.65 (4.2-5.4) M/mm3 Hgb 14.5 D (12.0-15.0) g/dL Hct 41.4 (37.0-47.0) % MCV 89.0 (80-100) fl MCH 31.2 (26-34) pg MCHC 35.0 (32-36) g/dl RDW 12.0 (11.5-14.5) % Plt Count 289 (150-375) k/mm3 MPV 9.0 (7.4-10.4) fl Immature Gran % (Auto) 0.3 (0-0.5) % Neut % (Auto) 48.6 (45.5-73.1) % Lymph % (Auto) 35.8 (18.3-44.2) % [place] % (Auto) 7.3 (2.6-8.5) % Eos % (Auto) 6.7 H (0-4.4) % Baso % (Auto) 1.3 H (0.2-1.2) % Lymph # (Auto) 3.09 (0.9-3.2) K/mm3 [place] # (Auto) 0.6 (0.1-0.6) K/mm3 Eos # (Auto) 0.6 H (0-0.3) K/mm3 Baso # (Auto) 0.1 (0.0-0.1) K/mm3 Abs Immat Gran (auto) 0.03 (0.00-0.031) K/mm3 Absolute Neuts (auto) 4.2 (1.3-6.7) K/mm3 Absolute Nucleated RBC 0.000 (0.0-0.012) K/mm3 Nucleated RBC % 0.0 (0.0-0.2) % Sodium 137 (137-145) mmol/L Potassium 3.6 (3.4-5.0) mmol/L Chloride 106 (98-107) mmol/L Carbon Dioxide 21 L (22-30) mmol/L Anion Gap 10 (4-12) mmol/L BUN 9 (7-17) mg/dL Creatinine 0.58 L (0.7-1.0) mg/dL Estim Creat Clear Calc 163 ml/min Estimated GFR > 60 (59 - ) Glucose 84 (65-110) mg/dL Calcium 9.7 (8.4-10.2) mg/dL Total Bilirubin 0.4 (0.2-1.3) mg/dL AST 41 H (14-36) U/L ALT 52 H (6-35) U/L Alkaline Phosphatase 64 (38-126) U/L Total Protein 7.5 (6.3-8.2) g/dL Albumin 4.5 (3.5-5.1) g/dL Urine Color Yellow (Yellow) Urine Appearance Cloudy H (Clear) Urine pH 6.5 (5.0-9.0) Ur Specific [place] 1.017 (1.001-1.035) Urine Protein Trace (Negative) mg/dL Urine Glucose (UA) Negative (Negative) mg/dL Urine Ketones Negative (Negative) mg/dL Ur Blood (Man) 3+ H (Negative) Urine Nitrate Negative (Negative) Urine Bilirubin Negative (Negative) Urine Urobilinogen 1.0 (<2.0) mg/dL Leukocyte Esterase Rfl 1+ H (Negative) МАРИНА/UL Urine RBC >100 H (0-2) /hpf Urine WBC 6-10 H (0-3) /hpf Ur Squamous Epith Cells Few (Few) /hpf Urine Bacteria 1+ H /hpf Urine Casts 0-2 POC Urine HCG, Qual Negative (Negative) Imaging Data Radiologist's impression: ITS Impressions Abdomen/Pelvis CT 01/18/25 16:11 IMPRESSION: 1. No acute intra-abdominal process. 2. Malpositioned IUD detailed above. Ultrasound is recommended Discharge Plan Discharge Clinical Impression: Urinary tract infection, Malpositioned IUD Patient Disposition: Home Condition: Stable Instructions: Urinary Tract Infection in Women (ED) Additional Instructions: Take the antibiotics as prescribed. Please follow up with OBGYN for your IUD; you may need to use other control methods until the IUD position can be confirmed. If you start having any worsening pain, nausea/vomiting, or anything else concerning, come back to the ER. Patient Language: Lao Prescriptions: New sulfamethoxazole-trimethoprim [Bactrim DS] 800-160 mg tablet 1 tablet PO Q12H Qty: 14 0RF No Action docusate sodium 100 mg Capsule 100 mg PO BID PRN (Reason: constipation) Qty: 60 1RF hydrocodone-acetaminophen 5-325 mg Tablet 1 tablet PO Q4-6H PRN (Reason: Moderate Pain (4-6)) Qty: 30 0RF ibuprofen 600 mg Tablet 600 mg PO Q6H PRN (Reason: Cramping) Qty: 60 1RF Follow-up/Referrals: Ney,Renea [Other] Will Deshpande MD [Physician, APPRENTICESHIP TRAINING REPRESENTATIVE] - 3 Days
[2025-01-18 16:53] VITALS: BP 123/78; PULSE 88; RESP 18; O2SAT 99
== END 2025-01-18 17:00 | disposition home or self-care (01) ==
PROVIDERS: Family Medicine; Emergency Provider Emergency Medicine
DX: N39.0 Urinary tract infection, site not specified (principal); T83.32XA Displacement of intrauterine contraceptive device, initial encounter; E28.2 Polycystic ovarian syndrome; L68.0 Hirsutism; F17.210 Nicotine dependence, cigarettes, uncomplicated; Y76.2 Prosthetic and other implants, materials and accessory obstetric and gynecological devices associated with adverse incidents
CPT/HCPCS: 36415; 74176; 80053; 81001; 81025; 85025; 87086; 96361; 96365; 99284; J0696; J7030